=== PATIENT | male | born 1960 ===

== ENCOUNTER 2020-11-22 08:07 | Outpatient (REF) | payer OTHER, SELFPAY ==
[2020-11-22 09:53] LABS: Alanine Aminotransferase 28 U/L (0-40); Albumin Level 4.5 g/dL (3.5-5.0); Alkaline Phosphatase 77 U/L (39-117); Anion Gap 12 (12-20); Aspartate Amino Transferase 34 U/L (5-37); Bilirubin Total 0.7 mg/dL (0.0-1.0); Blood Urea Nitrogen 17 mg/dL (9-16); Calcium 9.1 mg/dL (8.4-10.2); Carbon Dioxide 25 mmol/L (22-29); Chloride 103 mmol/L (96-108); Cholesterol 115 mg/dL; Estimated Glomerular Filt Rate > 60; Glucose Fasting 105 mg/dL (60-99); HDL Cholesterol 57 mg/dL; LDL Cholesterol Calculated 51 mg/dl; Potassium 3.9 mmol/L (3.3-5.1); Sodium 136 mmol/L (135-145); Triglycerides 39 mg/dL
[2020-11-22 09:57] LABS: PSA,Total (Free>4and<10) 0.67 ng/mL (0.00-4.00)
[2020-11-23 05:32] LABS: Thyroglobulin Antibodies <1 IU/mL (< or = 1); Thyroid Peroxidase Antibodies 7 IU/mL (<9)
[2020-11-27 08:32] LABS: Vitamin D 25-OH, D2 <4 ng/mL; Vitamin D 25-OH, D3 33 ng/mL; Vitamin D 25-OH, Total 33 ng/mL (30-100)
== END 2020-11-22 08:08 | disposition home or self-care (01) ==
LOC: HO.LAB 08:07
PROVIDERS: PCP Internal Medicine; Visit Provider Internal Medicine
DX: E03.9 Hypothyroidism, unspecified (principal); E55.9 Vitamin D deficiency, unspecified; E78.5 Hyperlipidemia, unspecified; Z12.5 Encounter for screening for malignant neoplasm of prostate
CPT/HCPCS: 36415; 80053; 80061; 82306; 84153; 84439; 84443; 86376; 86800

== ENCOUNTER 2021-06-18 09:07 | Outpatient (REF) | payer OTHER, SELFPAY ==
[2021-06-18 10:29] LABS: Alanine Aminotransferase 25 U/L (0-40); Albumin Level 4.7 g/dL (3.5-5.0); Alkaline Phosphatase 82 U/L (39-117); Anion Gap 12 (12-20); Aspartate Amino Transferase 32 U/L (5-37); Bilirubin Total 0.5 mg/dL (0.0-1.0); Blood Urea Nitrogen 17 mg/dL (9-16); Calcium 9.4 mg/dL (8.4-10.2); Carbon Dioxide 23 mmol/L (22-29); Chloride 105 mmol/L (96-108); Cholesterol 127 mg/dL; Estimated Glomerular Filt Rate > 60; Glucose Fasting 118 mg/dL (60-99); HDL Cholesterol 57 mg/dL; LDL Cholesterol Calculated 64 mg/dl; Potassium 4.1 mmol/L (3.3-5.1); Sodium 136 mmol/L (135-145); Total Protein 7.3 g/dL (6.5-8.0); Triglycerides 32 mg/dL
[2021-06-18 10:36] LABS: Thyroid Stimulating Hormone 2.54 uIU/mL (0.32-4.0)
[2021-06-22 13:17] LABS: Vitamin D 25-OH, D2 <4 ng/mL; Vitamin D 25-OH, D3 39 ng/mL; Vitamin D 25-OH, Total 39 ng/mL (30-100)
== END 2021-06-18 09:08 | disposition home or self-care (01) ==
LOC: HO.LAB 09:07
PROVIDERS: Visit Provider Internal Medicine
DX: E78.5 Hyperlipidemia, unspecified (principal); E03.9 Hypothyroidism, unspecified; E55.9 Vitamin D deficiency, unspecified; I10 Essential (primary) hypertension
CPT/HCPCS: 36415; 80053; 80061; 82306; 84443

== ENCOUNTER 2021-12-09 07:47 | Outpatient (REF) | payer OTHER, SELFPAY ==
[2021-12-09 08:42] LABS: Estimated Average Glucose 108 mg/dL; Hemoglobin A1c % 5.4 %
[2021-12-09 08:50] LABS: Alanine Aminotransferase 21 U/L (0-40); Albumin Level 4.6 g/dL (3.5-5.0); Alkaline Phosphatase 72 U/L (39-117); Anion Gap 15 (12-20); Aspartate Amino Transferase 30 U/L (5-37); Bilirubin Total 0.7 mg/dL (0.0-1.0); Blood Urea Nitrogen 21 mg/dL (9-16); Carbon Dioxide 20 mmol/L (22-29); Chloride 105 mmol/L (96-108); Cholesterol 140 mg/dL; Estimated Glomerular Filt Rate > 60; Glucose Fasting 114 mg/dL (60-99); HDL Cholesterol 55 mg/dL; LDL Cholesterol Calculated 75 mg/dl; Potassium 3.9 mmol/L (3.3-5.1); Sodium 136 mmol/L (135-145); Total Protein 7.3 g/dL (6.5-8.0); Triglycerides 51 mg/dL
[2021-12-09 09:13] LABS: TSH reflex Free T4 4.14 uIU/mL (0.32-4.0); Vitamin D 25-OH Total 39.6 ng/mL (>30)
[2021-12-09 10:33] LABS: Free T4 (Free Thyroxine) 0.99 ng/dL (0.71-1.85)
== END 2021-12-09 07:48 | disposition home or self-care (01) ==
LOC: HO.LAB 07:47
PROVIDERS: PCP Internal Medicine; Visit Provider Nurse Practitioner Family
DX: I10 Essential (primary) hypertension (principal); E78.5 Hyperlipidemia, unspecified; R73.01 Impaired fasting glucose; E03.9 Hypothyroidism, unspecified
CPT/HCPCS: 36415; 80053; 80061; 82306; 83036; 84439; 84443

== ENCOUNTER 2022-04-21 06:38 | Outpatient (REF) | payer OTHER, SELFPAY | END 2022-04-21 06:39 | disposition home or self-care (01) | LOC: HO.LAB 06:38 | PROVIDERS: PCP Internal Medicine; Visit Provider Nurse Practitioner Family | DX: Z13.89 Encounter for screening for other disorder (principal) | CPT/HCPCS: 36415; 80053; 80061; 84153; 84443 ==

== ENCOUNTER 2022-09-03 08:47 | Outpatient (REF) | payer OTHER, SELFPAY ==
[2022-09-03 11:44] LABS: Alanine Aminotransferase 26 U/L (0-40); Albumin Level 4.7 g/dL (3.5-5.0); Alkaline Phosphatase 81 U/L (39-117); Anion Gap 11 (12-20); Aspartate Amino Transferase 30 U/L (5-37); Bilirubin Total 0.6 mg/dL (0.0-1.0); Blood Urea Nitrogen 18 mg/dL (9-16); Calcium 10.1 mg/dL (8.4-10.2); Carbon Dioxide 28 mmol/L (22-29); Chloride 100 mmol/L (96-108); Cholesterol 153 mg/dL; Estimated Glomerular Filt Rate > 60; Glucose Fasting 90 mg/dL (60-99); HDL Cholesterol 77 mg/dL; LDL Cholesterol Calculated 67 mg/dl; Potassium 4.4 mmol/L (3.3-5.1); Sodium 135 mmol/L (135-145); Total Protein 7.4 g/dL (6.5-8.0); Triglycerides 49 mg/dL
[2022-09-03 12:04] LABS: Thyroid Stimulating Hormone 7.97 uIU/mL (0.32-4.0)
== END 2022-09-03 08:48 | disposition home or self-care (01) ==
LOC: HO.LAB 08:47
PROVIDERS: PCP Internal Medicine; Visit Provider Internal Medicine
DX: E55.9 Vitamin D deficiency, unspecified (principal); E03.9 Hypothyroidism, unspecified; E78.5 Hyperlipidemia, unspecified; R73.01 Impaired fasting glucose
CPT/HCPCS: 36415; 80053; 80061; 82306; 84443

== ENCOUNTER 2023-01-11 08:26 | Outpatient (REF) | payer OTHER, SELFPAY ==
[2023-01-11 09:44] LABS: Alanine Aminotransferase 26 U/L (0-40); Albumin Level 4.2 g/dL (3.5-5.0); Alkaline Phosphatase 75 U/L (39-117); Anion Gap 13 (12-20); Aspartate Amino Transferase 27 U/L (5-37); Bilirubin Total 0.6 mg/dL (0.0-1.0); Blood Urea Nitrogen 16 mg/dL (9-16); Calcium 9.5 mg/dL (8.4-10.2); Carbon Dioxide 28 mmol/L (22-29); Chloride 104 mmol/L (96-108); Cholesterol 136 mg/dL; Estimated Glomerular Filt Rate > 60; Glucose Fasting 95 mg/dL (60-99); HDL Cholesterol 66 mg/dL; LDL Cholesterol Calculated 62 mg/dl; Potassium 4.7 mmol/L (3.3-5.1); Sodium 140 mmol/L (135-145); Total Protein 6.6 g/dL (6.5-8.0); Triglycerides 40 mg/dL
[2023-01-11 10:05] LABS: PSA,Total (Free>4and<10) 0.78 ng/mL (0.00-4.00); Thyroid Stimulating Hormone 5.51 uIU/mL (0.32-4.0)
== END 2023-01-11 08:27 | disposition home or self-care (01) ==
LOC: HO.LAB 08:26
PROVIDERS: PCP Internal Medicine; Visit Provider Internal Medicine
DX: Z12.5 Encounter for screening for malignant neoplasm of prostate (principal); E03.9 Hypothyroidism, unspecified; I10 Essential (primary) hypertension; E78.5 Hyperlipidemia, unspecified
CPT/HCPCS: 36415; 80053; 80061; 84153; 84443

== ENCOUNTER → 2023-03-29 08:39 | Outpatient (BNVA) | payer OTHER, SELFPAY | PROVIDERS: PCP Internal Medicine; Visit Provider Nurse Practitioner Family ==

== ENCOUNTER 2023-04-27 07:34 | Outpatient (AMB) | payer OTHER, SELFPAY ==
[2023-04-27 07:39] VITALS: BP 162/80; PULSE 81; O2SAT 97; BMI 34.1
--- NOTE | 2023-04-27 07:39 | AM.OFFVISMDC ---
Intake Vital Signs 04/27/23 07:39 04/27/23 08:13 Height 5 ft 6 in Weight 211 lb BMI 34.1 BP 162/80 H 160/80 H Blood Pressure Location Lt brachial Lt brachial Position Sitting Sitting Pulse 81 Pulse Source Pulse Oximeter Pulse Oximetry (%) 97 Oxygen Delivery Method Room Air Intake Visit Reasons: AWV Allergies No Known Allergies Allergy (Verified 04/27/23 07:51) Medication List - Last Reconciled 04/27/23 by Melissa Mcrae MD acetaminophen 1,000 mg (2 x 500 mg) PO Q6H PRN 30 days [adult diapers pull-ups As directed] ammonium lactate 12% 1 appl topical BID PRN 90 days atorvastatin 20 mg PO QPM 90 days blood pressure monitor As directed cholecalciferol (vitamin D3) 25 mcg PO DAILY 90 days Grab bar As directed [handheld shower head As directed] hydrochlorothiazide 25 mg PO DAILY 90 days levothyroxine 200 mcg PO DAILY 90 days lisinopril 30 mg PO DAILY 90 days loratadine (Allergy Relief (loratadine)) 10 mg PO DAILY 90 days melatonin 5 mg PO BEDTIME PRN 90 days [personal wipes As directed] polyethylene glycol 3350 (Miralax) 238 grams PO ONCE 1 day [raised toilet seat As directed] triamcinolone acetonide 0.5% 1 appl topical DAILY PRN walker as directed HPI HPI Comments History of Present Illness Details This is a 62-year-old male that comes for his Medicare wellness exam accompanied by niece which is the sheet pile driver operator. Blood pressure elevated and I will increase lisinopril from 30 mg to 40 mg. Blood pressure will be recheck in 3 weeks by nurse navigator. Denies any chest pain or shortness of breath. PPP handed to patient. He is legally blind and has occasional accidents. Colonoscopy is pending to be scheduled. Needs assistance in basic activities of daily living. Healthcare proxy was completed and scanned. Should use a cane. Unable to do mini-mental because he does not read or write due to being legally blind. [facility] Medical History Allergic rhinitis due to allergen Dyslipidemia Essential hypertension Hypothyroidism Insomnia Obese Surgical History History of open reduction and internal fixation (ORIF) procedure Family History Mother Diabetes mellitus Father Hypertension Mental health disorder Social History Housing: Apartment Alcohol intake: current Alcohol intake frequency: holidays/special occasions only Alcohol type: beer Patient Tobacco Use Status: Never used Tobacco e-Cigarette/Vaping Use: Never Used Second Hand Smoke Exposure: No service: No Current occupational status: disabled Cognitive needs: Yes (cane) Hearing needs: No Vision needs: No Questionnaire Medicare Wellness Checkup What is your age?: 65-69 (18-64) What gender do you identify with?: male During the past 4 weeks, how much have you been bothered by emotional problems such as feeling anxious, depressed, irritable, sad or downhearted, and blue?: quite a bit During the past 4 weeks, has your physical & emotional health limited your social activities with family, friends, neighbors, or groups?: quite a bit During the past 4 weeks, how much bodily pain have you generally had?: moderate pain During the past 4 weeks, was someone available to help you if you needed & wanted help?: yes, some During the past 4 weeks, what was the hardest physical activity you could do for at least 2 minutes?: very light Can you get to places out of walking distance without help? (For eg., can you travel alone on buses, taxis or drive your car?): No Can you go shopping for groceries or clothes without someone's help?: No Can you prepare your own meals?: No Can you do your housework without help?: No Because of any health problems, do you need the help of another person with your personal care needs such as eating, bathing, dressing or getting around the house?: Yes Can you handle your own money without help?: No During the past 4 weeks, how would you rate your health in general?: fair During the past 4 weeks how have things been going for you?: good & bad parts about equal Are you having difficulties driving your car?: not applicable, I don't use a car Do you always fasten your seat belt when you are in a car?: yes, usually During past 4 weeks, have you been bothered by the following: never: Sexual problems?, Trouble eating well?, Teeth or denture problems? and Tiredness or fatigue?, often: Falling or dizzy when standing up and always: Problems using the telephone? Have you fallen 2 or more times in the past year?: Yes Are you afraid of falling?: Yes Are you a smoker?: no During the past 4 weeks, how many drinks of wine, beer, or other alcoholic beverages did you have?: 1 drink or less per week Do you exercise for about 20 minutes 3 or more times a week?: no, I usually do not exercise this much Have you been given information to help with the following?: no: Hazards in your house that might hurt you? and no: Keeping track of your medications? How often do you have trouble taking medicines the way you have been told to take them?: I always take medicine as prescribed How confident are you that you can control & manage most of your health problems?: not very confident What is your race?: or origin or descent Mini Mental State Exam (MMSE) Orientation What is the (year) (season) (date) (day) (month)?: season and day Where are we (state) (county) (town or city) (hospital) (floor)?: state, county, town or city, hospital/clinic and floor Registration Name of 3 unrelated objects clearly and slowly, then ask patient to repeat all 3 of them. (1st repeat determines score. Make sure they can repeat all three): object 1, object 2 and object 3 Recall Ask patient to repeat the 3 items from question #3.: object 1, object 2 and object 3 Language Show patient a wristwatch & ask what it is. Repeat for pencil.: watch and pencil Ask the patient to repeat the phrase 'No ifs, ands, or buts' after you.: correct Ask the patient to 'take a piece of paper with their right hand' 'fold paper in half' 'place paper on floor': take paper in right hand, fold paper in half and place paper on floor Score Score: 19 Activity of Daily Living Bathing - sponge bath, tub bath or shower: receives help in bathing more than one body part (or not bathed) Dressing - getting clothes from closets & drawers, including inner/outer garments & fasteners.: receives help getting clothes or getting dressed, or stays undressed Toileting - going to the 'toilet room' for urine/bowel elimination & cleaning self/arranging clothes: receives help going to toilet room, cleaning self or arranging clothes Transfer: moves in & out of bed or chair with help Continence: has occasional 'accidents' Feeding: feeds self without help Total Score: 2 Information obtained from: informant (Niece) Using telephone: dependent Traveling: dependent Shopping: dependent Preparing meals: dependent Housework: dependent Taking medicine: dependent Managing money: dependent PHQ-9 Over the last 2 weeks, how often have you been bothered by any of the following problems? 1. Little interest or pleasure in doing things: several days 2. Feeling down, depressed, or hopeless: several days 3. Trouble falling or staying asleep, or sleeping too much: several days 4. Feeling tired or having little energy: not at all 5. Poor appetite or overeating: not at all 6. Feeling bad about yourself - or that you are a failure or have let yourself or your family down: not at all 7. Trouble concentrating on things, such as reading the newspaper or watching television: not at all 8. Moving or speaking so slowly that other people could have noticed. Or the opposite - being so fidgety or restless that you have been moving around a lot more than usual: not at all 9. Thoughts that you would be better off or of hurting yourself in some way: not at all Total score: 3 Depression Screening Interpretation: Negative 66262 - PHQ-9 Billing: Yes Source: Developed by Drs. Maximilian Mendieta, Cuca Harper, Roscoe Rodriguez and colleagues, with an educational linette from [employer]. Thrive Questionnaire Date Thrive assessed: 09/03/22 CASA-7 AMB Questionnaire CASA-7 Date CASA - 7 assessed: 09/03/22 Source: Developed by Drs. Maximilian Mendieta, Cuca Harper, Roscoe Rodriguez and colleagues, with an educational linette from [employer]. Review of Systems Const All systems reviewed & are unremarkable except as noted in HPI and below Eyes Reports loss of vision Card Denies chest pain at rest, Denies chest pain with activity, Denies edema, Denies irregular heart rhythm, Denies claudication, Denies dyspnea, Denies dyspnea on exertion, Denies orthopnea, Denies paroxysmal nocturnal dyspnea and Denies slow heart rate Resp Denies cough, Denies dyspnea and Denies dyspnea on exertion GI Denies abdominal pain, Denies change in bowel habits, Denies excessive flatus, Denies nausea and Denies vomiting Denies urinary hesitancy, Denies urinary incontinence and Denies urinary urgency Musc Denies abnormal gait, Denies atrophy, Denies deformity and Denies limited range of motion Skin/Breast Denies bleeding lesions, Denies changing lesions and Denies rash Neuro Denies abnormal gait, Denies lack of coordination and Reports loss of vision Physical Exam Vital Signs: Last Vital Signs Pulse 81 04/27/23 07:39 BP 162/80 H 04/27/23 07:39 Pulse Ox 97 04/27/23 07:39 Oxygen Delivery Method Room Air 04/27/23 07:39 BMI result Body Mass Index 34.1 Const Orientation/consciousness: oriented to person and oriented to place Eyes Other: legally blind Resp Auscultation: clear to auscultation bilaterally Cardio Heart sounds: S1 normal heart sound present and S2 normal heart sound present Neuro General: oriented to person and oriented to place Gait exam (Neuro): Normal gait present Romberg Test: Negative Immunizations Boostrix Tdap Performing Provider: Melissa Mcrae MD Administered by: Kelley Last CMA on 04/27/23 08:11 Dose Route Admin Location Lot Number Expiration Date [facility] Lead Simulation Modeling Engineer 0.5 mL IM Left Deltoid [id number] 07/28/25 [id number] [employer] VIS Given Date VIS Provided VIS Publication Date 04/27/23 Single Vaccine 21 Eligibility Eligibility Date Funding Source Not [facility] Eligible 04/27/23 Private Assessment & Plan Assessment & Plan (1) Encounter for Medicare annual wellness exam: Code(s): Z00.00 - Encounter for general adult medical examination without abnormal findings Plan: Repeat in a year Orders: Orders TDaP Immunization Today Z23 - Encounter for immunization Quality Reporting (2019) Depression/Bipolar (159/160/161/177) PHQ-9: Total score: 3 Coding Level of Care Code Medicare Subsequent (G0439) Diagnoses Encounter for Medicare annual wellness exam Z00.00 CPT Codes Advance Care Planning - Time spent: 1-15 minutes, on File ([id number]) Time Spent (min) 36 Advance Care Planning Advance Care Planning discussion: Completed/Scanned Date of discussion: 04/27/23 Who was present: niece, patient and me Forms completed: Health Care Proxy Time spent: 1-15 minutes, on File Actual minutes spent: 3
[2023-04-27 08:13] VITALS: BP 160/80
== END 2023-04-27 08:14 | disposition home or self-care (01) ==
PROVIDERS: PCP Internal Medicine; Visit Provider Internal Medicine
DX: Z23 Encounter for immunization (principal); Z00.00 Encounter for general adult medical examination without abnormal findings
CPT/HCPCS: 1123F; 90471; 90715; G0439

== ENCOUNTER 2023-05-10 13:56 | Emergency (ER) | payer OTHER, SELFPAY ==
[2023-05-10 14:39] VITALS: BP 180/98; PULSE 62; RESP 18; TEMP 36.8; O2SAT 99; BMI 33.6
--- NOTE | 2023-05-10 14:40 | ED.GENADULT ---
HPI - General Adult General Chief complaint: General Medical Stated complaint: HBP 4 days Time Seen by Provider: 05/10/23 20:35 Source: patient and family Mode of arrival: ambulatory Limitations: no limitations History of Present Illness HPI narrative: 62 [place] speaking male with history of obesity, HTN, HLD, insomnia who presents to the ER evaluation of elevated BP for the last 5 days - 180/140 at home associated with headaches. Niece translating for him - states the BP has been elevated since he lost his mother 5 days ago. Has been compliant with his lisinopril 40 mg and HCTZ 25 mg per day. Lisinopril increased from 20-40 mg [address] Rueda. PCP told him to come to the ER. Patient not able to sleep very well has the elevated blood pressure all life and had poor control no headache no nausea no vomiting no visual changes shortness of air no chest pain Related Data Previous Rx's Medication Instructions Recorded atorvastatin 20 mg tablet 20 mg PO QPM 90 days #90 tabs 12/12/21 melatonin 5 mg tablet 5 mg PO BEDTIME PRN sleep 90 days 12/12/21 #90 tabs polyethylene glycol 3350 17 238 g PO ONCE 1 day #238 grams 04/22/22 gram/dose oral powder (Miralax) cholecalciferol (vitamin D3) 25 25 mcg PO DAILY 90 days #90 caps 08/06/22 mcg (1,000 unit) capsule Grab bar #1 ea 09/03/22 adult diapers pull-ups #240 ea 09/03/22 handheld shower head #1 ea 09/03/22 personal wipes #300 ea 09/03/22 raised toilet seat #1 ea 09/03/22 walker #1 ea 09/03/22 ammonium lactate 12 % topical cream 1 appl topical BID PRN dry skin 90 01/11/23 days #385 grams levothyroxine 200 mcg tablet 200 mcg PO DAILY 90 days #90 tabs 01/11/23 loratadine 10 mg tablet (Allergy 10 mg PO DAILY 90 days #90 tabs 01/11/23 Relief (loratadine)) blood pressure monitor #1 ea 01/29/23 acetaminophen 500 mg tablet 1,000 mg (2 x 500 mg) PO Q6H PRN 04/11/23 fever or pain 30 days #120 tabs triamcinolone acetonide 0.5 % 1 appl topical DAILY PRN rash #15 04/11/23 topical ointment grams hydrochlorothiazide 25 mg tablet 25 mg PO DAILY 90 days #90 tabs 04/27/23 lisinopril 40 mg tablet 40 mg PO DAILY 90 days #90 tabs 04/27/23 amlodipine 5 mg tablet 5 mg PO DAILY #90 tabs 05/10/23 lorazepam 1 mg tablet (Ativan) 1 mg PO BEDTIME PRN sleep #10 tabs 05/10/23 Allergies Allergy/AdvReac Type Severity Reaction Status Date / Time No Known Allergies Allergy Verified 05/10/23 14:42 Review of Systems Review of Systems: Yes all other systems are reviewed and are negative [facility] Past Medical History Medical History Allergic rhinitis due to allergen Obese Hypothyroidism Insomnia Dyslipidemia Essential hypertension Surgical History History of open reduction and internal fixation (ORIF) procedure Family History Family History Mother Diabetes mellitus Father Hypertension Mental health disorder Social History Social History Housing: Apartment Alcohol intake: current Alcohol intake frequency: holidays/special occasions only Alcohol type: beer Patient Tobacco Use Status: Never used Tobacco e-Cigarette/Vaping Use: Never Used Second Hand Smoke Exposure: No Advance Directives: No Advance Directives Information Provided: Yes service: No Current occupational status: disabled Cognitive needs: Yes (cane) Hearing needs: No Vision needs: No Physical Exam ED Vital Signs: Vital Signs - 24 hr 05/10/23 14:39 05/10/23 19:41 Temperature 98.2 F Pulse Rate 62 63 Respiratory Rate 18 Blood Pressure 180/98 H 191/108 H Pulse Oximetry 99 97 Oxygen Delivery Method Room Air Room Air BMI result Body Mass Index 33.6 Appearance: Alert. Oriented X3. No acute distress. Look depressed Eyes: PERRLA, No Nystagmus ENT: Pharynx normal. Oral Mucosa moist Neck: Normal inspection. Neck supple. CVS: Normal heart rate and rhythm. Pulses normal. Respiratory: No respiratory distress. Equal air entry bilateral, no wheezing/rales/rhonchi Abdomen: Soft and nontender. Bowel sounds are present, no mass palpable, no CVA tenderness Skin: Skin warm and dry. Normal skin color. Normal skin turgor. Extremities: No lower extremity edema. No calf tenderness Neuro: Oriented X 3. No motor deficit. No sensory deficit.No cerebellar signs , cranial nerves II-XII intact Course Course Course Narrative: RME - 62 [place] speaking male with history of obesity, HTN, HLD, insomnia who presents to the ER evaluation of elevated BP for the last 5 days - 180/140 at home associated with headaches. Niece translating for him - states the BP has been elevated since he lost his mother 5 days ago. Has been compliant with his lisinopril 40 mg and HCTZ 25 mg per day. One of his meds was increased [address] Rueda. PCP told him to come to the ER. BP 180/98 in triage. no headache, chest pain or vision changes Plan: basic labs, EKG Medications Administered Discontinued Medications Generic Name Dose Route Start Last Admin Trade Name Yfn PRN Reason Stop Dose Admin Amlodipine Besylate 5 mg 05/10/23 20:58 05/10/23 21:11 Amlodipine Besylate 5 Mg Tablet PO 05/10/23 20:59 5 mg ONCE ONE Administration Protocol Lorazepam 1 mg 05/10/23 20:59 05/10/23 21:11 Lorazepam 1 Mg Tablet PO 05/10/23 21:00 1 mg ONCE ONE Administration Medical Decision Making Medical Decision Making [facility] Narrative: Patient with elevated hypertension already on lisinopril and hydrochlorothiazide will add 5 mg of amlodipine for better blood pressure control also give Ativan for grief reaction Differential Diagnosis Differential Diagnoses: The differential diagnosis associated with the presentation includes Accelerated hypertension/hypertension urgency/grief reaction Lab Data [facility] Lab Attestation statement: I reviewed the patient's lab results. 05/10/23 15:11 05/10/23 15:11 Labs: Lab Results 05/10/23 05/10/23 Range/Units 15:11 19:52 WBC 7.4 (4.8-10.8) X10*3/uL RBC 5.04 (4.60-5.80) X10*6/uL Hgb 15.3 (14.0-18.0) g/dl Hct 45.0 (42.0-52.0) % MCV 89.3 (80.0-98.0) fL MCH 30.4 (27.0-33.0) pg MCHC 34.0 (31.0-36.0) g/dl RDW 13.3 (11.0-16.0) % Plt Count 212 (160-400) X10*3/uL MPV 9.9 (9.4-12.4) fL Immature Gran % (Auto) 0.3 (0.0-0.4) % Neut % (Auto) 70.5 (45-73) % Lymph % (Auto) 21.7 (20-40) % Hart % (Auto) 6.6 (2-11) % Eos % (Auto) 0.5 (0-4) % Baso % (Auto) 0.4 (0-2) % Lymph # (Auto) 1.6 (1.2-4.9) X10*3/uL Hart # (Auto) 0.5 (0.1-1.2) X10*3/uL Eos # (Auto) 0.0 (0.0-0.4) X10*3/uL Baso # (Auto) 0.0 (0.0-0.2) X10*3/uL Abs Immat Gran (auto) 0.02 (0.00-0.03) X10*3/uL Absolute Neuts (auto) 5.2 (2.0-8.3) x10*3/uL Absolute Nucleated RBC 0.000 (0.0-0.012) X10*3/uL Nucleated RBC % (auto) 0.0 (0.0-0.2) /100WBC Sodium 135 (135-145) mmol/L Potassium 4.0 (3.3-5.1) mmol/L Chloride 101 (96-108) mmol/L Carbon Dioxide 28 (22-29) mmol/L Anion Gap 10 L (12-20) BUN 14 (9-16) mg/dL Creatinine 0.95 (0.5-1.4) mg/dL Estim Creat Clear Calc 86.6 Estimated GFR > 60 Random Glucose 92 (60-115) mg/dL Calcium 10.3 H D (8.4-10.2) mg/dL Magnesium 2.0 (1.6-2.6) mg/dL Total Bilirubin 0.6 (0.0-1.0) mg/dL Direct Bilirubin 0.2 (0.0-0.5) mg/dL AST 63 H (5-37) U/L ALT 40 (0-40) U/L Alkaline Phosphatase 72 (39-117) U/L Troponin I High Sens < 2.7 (<3.5-35.0) ng/L Total Protein 7.4 (6.5-8.0) g/dL Albumin 4.6 (3.5-5.0) g/dL Urine Color Yellow Urine Appearance Clear Urine pH 7.0 (5.0-9.0) Ur Specific [place] 1.020 (1.005-1.025) Urine Protein Negative (Neg-Trace) mg/dL Urine Glucose (UA) Negative (Negative) mg/dL Urine Ketones Negative (Negative) mg/dL Urine Blood Negative (Negative) Urine Nitrite Negative (Negative) Ur Leukocyte Esterase Negative (Negative) Discharge Plan Discharge Clinical Impression: Essential hypertension, Grief reaction Patient Disposition: Home, Self-Care Instructions: Grief and Loss (ED), Chronic Hypertension (ED) Additional Instructions: Continue taking your lisinopril 40 mg daily Add amlodipine 5 mg daily for better blood pressure control Ativan 1 mg at bedtime for better. Sleep Check blood pressure at least 2 times a day before taking medications and before going to bed Prescriptions: New amlodipine 5 mg tablet 5 mg PO DAILY Qty: 90 3RF lorazepam [Ativan] 1 mg tablet 1 mg PO BEDTIME PRN (Reason: sleep) Qty: 10 0RF No Action polyethylene glycol 3350 [Miralax] 17 gram/dose powder 238 g PO ONCE 1 Days Qty: 238 0RF Rx Instructions: take orally as directed prior to colonoscopy cholecalciferol (vitamin D3) 25 mcg (1,000 unit) capsule 25 mcg PO DAILY 90 Days Qty: 90 3RF levothyroxine 200 mcg tablet 200 mcg PO DAILY 90 Days Qty: 90 1RF (DME) blood pressure monitor Kit See Rx Instructions .Route Qty: 1 0RF Rx Instructions: As directed acetaminophen 500 mg tablet 1,000 mg PO Q6H PRN (Reason: fever or pain) 30 Days Qty: 120 1RF triamcinolone acetonide 0.5 % ointment 1 appl topical DAILY PRN (Reason: rash) Qty: 15 0RF melatonin 5 mg tablet 5 mg PO BEDTIME PRN (Reason: sleep) 90 Days Qty: 90 1RF atorvastatin 20 mg tablet 20 mg PO QPM 90 Days Qty: 90 3RF hydrochlorothiazide 25 mg tablet 25 mg PO DAILY 90 Days Qty: 90 1RF lisinopril 40 mg tablet 40 mg PO DAILY 90 Days Qty: 90 1RF ammonium lactate 12 % cream 1 appl topical BID PRN (Reason: dry skin) 90 Days Qty: 385 1RF loratadine [Allergy Relief (loratadine)] 10 mg tablet 10 mg PO DAILY 90 Days Qty: 90 1RF (DME) adult diapers pull-ups large See Rx Instructions .Route .MEDSUPPLY Qty: 240 11RF Rx Instructions: As directed (DME) personal wipes See Rx Instructions .Route .MEDSUPPLY Qty: 300 11RF Rx Instructions: As directed (DME) walker Misc See Rx Instructions .Route Qty: 1 0RF Rx Instructions: as directed (DME) Grab bar Misc See Rx Instructions .Route Qty: 1 0RF Rx Instructions: As directed (DME) handheld shower head See Rx Instructions .Route .MEDSUPPLY Qty: 1 0RF Rx Instructions: As directed (DME) raised toilet seat See Rx Instructions .Route .MEDSUPPLY Qty: 1 0RF Rx Instructions: As directed Interventions: ED Discharge Assessment Last Done: 05/10/23 21:43 Discharge Date/Time: 05/10/23 21:44 Print Language: [place] African
--- NOTE | 2023-05-10 14:42 | ECG_ITS ---
Test Reason : high blood pressure Blood Pressure : / mmHG Vent. Rate : 053 BPM Atrial Rate : 053 BPM P-R Int : 174 ms QRS Dur : 102 ms QT Int : 420 ms P-R-T Axes : 023 -33 060 degrees QTc Int : 394 ms Sinus bradycardia Left axis deviation Minimal voltage criteria for LVH, may be normal variant ( [place] product ) Nonspecific T wave abnormality Abnormal ECG No previous ECGs available Referred By: Elmira Bucio Electronically Signed By:ALMAS SALDAÑA
[2023-05-10 15:17] LABS: MANUAL DIFF FLAG NO
[2023-05-10 15:31] LABS: Basophils Percent Auto 0.4 % (0-2); Eosinophils Percent Auto 0.5 % (0-4); Hemoglobin 15.3 g/dl (14.0-18.0); Imm Gran Abs Auto 0.02 X10*3/uL (0.00-0.03); Imm Gran Pct Auto 0.3 % (0.0-0.4); Lymphocytes Absolute Auto 1.6 X10*3/uL (1.2-4.9); Lymphocytes Percent Auto 21.7 % (20-40); Mean Corpuscular Hemoglobin 30.4 pg (27.0-33.0); Mean Corpuscular Volume 89.3 fL (80.0-98.0); Mean Platelet Volume 9.9 fL (9.4-12.4); Monocytes Absolute Auto 0.5 X10*3/uL (0.1-1.2); Monocytes Percent Auto 6.6 % (2-11); Neutrophils Absolute Auto 5.2 x10*3/uL (2.0-8.3); Neutrophils Percent Auto 70.5 % (45-73); Platelet Count 212 X10*3/uL (160-400); Red Blood Count 5.04 X10*6/uL (4.60-5.80); Red Cell Distribution Width 13.3 % (11.0-16.0); White Blood Count 7.4 X10*3/uL (4.8-10.8)
[2023-05-10 15:34] LABS: Alanine Aminotransferase 40 U/L (0-40); Albumin Level 4.6 g/dL (3.5-5.0); Alkaline Phosphatase 72 U/L (39-117); Anion Gap 10 (12-20); Aspartate Amino Transferase 63 U/L (5-37); Bilirubin Direct 0.2 mg/dL (0.0-0.5); Bilirubin Total 0.6 mg/dL (0.0-1.0); Blood Urea Nitrogen 14 mg/dL (9-16); Calcium 10.3 mg/dL (8.4-10.2); Carbon Dioxide 28 mmol/L (22-29); Chloride 101 mmol/L (96-108); Creatinine Clr Calc Pharmacy 86.6; Estimated Glomerular Filt Rate > 60; Glucose Random 92 mg/dL (60-115); Sodium 135 mmol/L (135-145); Total Protein 7.4 g/dL (6.5-8.0)
[2023-05-10 15:43] LABS: Troponin-I High Sensitivity < 2.7 ng/L (<3.5-35.0)
[2023-05-10 19:41] VITALS: BP 191/108; PULSE 63; O2SAT 97
[2023-05-10 20:00] LABS: Appearance Urine Clear; Color Urine Yellow; Glucose Urine UA Negative (Negative); Leukocyte Esterase Urine Negative (Negative); Nitrite Urine Negative (Negative); Urine Blood Negative (Negative); Urine Ketones Negative (Negative); Urine Protein Negative (Neg-Trace)
[2023-05-10] MEDS: amLODIPine Besylate 5 MG TABLET PO (21:11)
[2023-05-10] MEDS: LORazepam 1 MG TABLET PO (21:11)
--- NOTE | 2023-05-10 21:12 | PC.NURSE ---
Medicated per Oct, Notified ABBI Whatley.
== END 2023-05-10 21:44 | disposition home or self-care (01) ==
PROVIDERS: Physician Assistant; Emergency Provider Internal Medicine; PCP Internal Medicine
DX: F43.21 Adjustment disorder with depressed mood (principal); I10 Essential (primary) hypertension; R00.1 Bradycardia, unspecified; R51.9 Headache, unspecified; Z79.899 Other long term (current) drug therapy
CPT/HCPCS: 36415; 80048; 80076; 81003; 83735; 84484; 85025; 93005; 99283; 99284

== ENCOUNTER 2023-07-16 20:57 | Emergency (ER) | payer OTHER, SELFPAY ==
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
[2023-07-16 21:01] VITALS: BP 144/89; PULSE 82; RESP 16; TEMP 37; O2SAT 98; BMI 32.7
[2023-07-16 21:10] VITALS: BP 144/78; PULSE 103; RESP 18; TEMP 36.3; O2SAT 99
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
[2023-07-16] MEDS: Lidocaine HCl 2 % 20 ML VIAL 10 ML SUBCUT (23:04)
[2023-07-16] MEDS: Ibuprofen 600 MG TABLET PO (23:04)
--- NOTE | 2023-07-16 23:07 | PC.NURSE ---
Patient is alert and oriented x4, respirations even and unlabored, skin pwd, reporting 9/10 pain in farooq where patient has 4 inch, 1 cm deep laceration with adipose tissue visible. Patient also reports 3/10 right rib pain. Patient denies head, neck or back pain. Offers no complaints to this RN. Pt medicated per MAR
[2023-07-16] MEDS: cephALEXin 500 MG CAPSULE PO (23:59)
[2023-07-16] MEDS: Bacitracin Oint 0.9 GM PACKET 3 APPL TOPICAL (23:59)
--- NOTE | 2023-07-17 00:02 | PC.NURSE ---
Took over care for RN Chante, Provider into assess pt and suture laceration, Laceration clean and dressed.
--- NOTE | 2023-07-17 00:07 | PC.NURSE ---
Education on suture care and follow up care.
[2023-07-17 00:32] VITALS: BP 165/97; PULSE 77; RESP 18; TEMP 37.2; O2SAT 99
--- NOTE | 2023-07-17 00:48 | PC.NURSE ---
Reviewed discharge instruction with pt, pt verbalized understanding, education on crutches. pt discharge home with niece, no sign of distress at discharge.
== END 2023-07-17 00:50 | disposition home or self-care (01) ==
PROVIDERS: Emergency Provider Internal Medicine
DX: S81.811A Laceration without foreign body, right lower leg, initial encounter (principal); S82.401A Unspecified fracture of shaft of right fibula, initial encounter for closed fracture; M79.661 Pain in right lower leg; V03.10XA Pedestrian on foot injured in collision with car, pick-up truck or van in traffic accident, initial encounter; Y93.9 Activity, unspecified; Y92.410 Unspecified street and highway as the place of occurrence of the external cause; Y99.9 Unspecified external cause status; Z79.899 Other long term (current) drug therapy
CPT/HCPCS: 12034; 71250; 73590; 99284

== ENCOUNTER 2023-07-27 17:27 | Emergency (ER) | payer OTHER, SELFPAY ==
[2023-07-27 17:50] VITALS: BP 143/73; PULSE 68; RESP 16; TEMP 37; O2SAT 99; BMI 33.6
--- NOTE | 2023-07-27 17:56 | ED_ITS ---
HPI - General Adult General Chief complaint: General Medical Stated complaint: NEEDS STITCHES REMOVED Related Data Previous Rx's Medication Instructions Recorded atorvastatin 20 mg tablet 20 mg PO QPM 90 days #90 tabs 12/12/21 melatonin 5 mg tablet 5 mg PO BEDTIME PRN sleep 90 days 12/12/21 #90 tabs polyethylene glycol 3350 17 238 g PO ONCE 1 day #238 grams 04/22/22 gram/dose oral powder (Miralax) cholecalciferol (vitamin D3) 25 25 mcg PO DAILY 90 days #90 caps 08/06/22 mcg (1,000 unit) capsule Grab bar #1 ea 09/03/22 handheld shower head #1 ea 09/03/22 raised toilet seat #1 ea 09/03/22 walker #1 ea 09/03/22 ammonium lactate 12 % topical cream 1 appl topical BID PRN dry skin 90 01/11/23 days #385 grams levothyroxine 200 mcg tablet 200 mcg PO DAILY 90 days #90 tabs 01/11/23 blood pressure monitor #1 ea 01/29/23 hydrochlorothiazide 25 mg tablet 25 mg PO DAILY 90 days #90 tabs 04/27/23 lisinopril 40 mg tablet 40 mg PO DAILY 90 days #90 tabs 04/27/23 lorazepam 1 mg tablet (Ativan) 1 mg PO BEDTIME PRN sleep #10 tabs 05/10/23 amlodipine 5 mg tablet 5 mg PO DAILY #90 tabs 05/14/23 adult diapers pull-ups #240 ea 06/10/23 disposable gloves #200 ea 06/10/23 personal wipes #300 ea 06/10/23 underpads (Bed Underpads) #100 ea 06/10/23 lorazepam 1 mg tablet 1 mg PO BEDTIME PRN anxiety 30 06/16/23 days #30 tabs acetaminophen 500 mg tablet 1,000 mg (2 x 500 mg) PO Q6H PRN 06/19/23 fever or pain 30 days #120 tabs triamcinolone acetonide 0.5 % 1 appl topical DAILY PRN rash #15 06/19/23 topical ointment grams loratadine 10 mg tablet (Allergy 10 mg PO DAILY 90 days #90 tabs 07/09/23 Relief (loratadine)) cephalexin 500 mg capsule 500 mg PO QID 10 days #40 caps 07/17/23 ibuprofen 600 mg tablet 600 mg PO Q6H PRN fever or pain 07/17/23 #30 tabs Allergies Allergy/AdvReac Type Severity Reaction Status Date / Time No Known Allergies Allergy Unverified 06/16/23 14:20 [No Known Allergies*] [facility] Past Medical History Medical History Allergic rhinitis due to allergen Obese Hypothyroidism Insomnia Dyslipidemia Essential hypertension Surgical History History of open reduction and internal fixation (ORIF) procedure Family History Family History Mother Diabetes mellitus Father Hypertension Mental health disorder Social History Social History Housing: Apartment Alcohol intake: current Alcohol intake frequency: holidays/special occasions only Alcohol type: beer Patient Tobacco Use Status: Never used Tobacco e-Cigarette/Vaping Use: Never Used Second Hand Smoke Exposure: No service: No Current occupational status: disabled Cognitive needs: Yes (cane) Hearing needs: No Vision needs: No Physical Exam ED Vital Signs: Vital Signs - 24 hr 07/27/23 17:50 Temperature 98.6 F Pulse Rate 68 Respiratory Rate 16 Blood Pressure 143/73 H Pulse Oximetry 99 Oxygen Delivery Method Room Air BMI result Body Mass Index 33.6 Course Course Course Narrative: This is a rapid medical exam: Additional HPI, ROS, PE not included below will be deferred to primary provider. Patient is a 62-year-old male presenting to the ED for suture removal to right lower leg. Sutures significantly embedded in wound. Will require significant time for removal. Discussed with patient and family that sutures unable to be removed in triage, family states they will return in the next few days. Discharge Plan Discharge Clinical Impression: Visit for wound check Patient Disposition: Left W/O Completing Treatment Prescriptions: No Action polyethylene glycol 3350 [Miralax] 17 gram/dose powder 238 g PO ONCE 1 Days Qty: 238 0RF Rx Instructions: take orally as directed prior to colonoscopy cholecalciferol (vitamin D3) 25 mcg (1,000 unit) capsule 25 mcg PO DAILY 90 Days Qty: 90 3RF levothyroxine 200 mcg tablet 200 mcg PO DAILY 90 Days Qty: 90 1RF (DME) blood pressure monitor Kit See Rx Instructions .Route Qty: 1 0RF Rx Instructions: As directed amlodipine 5 mg tablet 5 mg PO DAILY Qty: 90 3RF (DME) personal wipes See Rx Instructions .Route .MEDSUPPLY Qty: 300 11RF Rx Instructions: As directed (DME) underpads [Bed Underpads] Pad See Rx Instructions .Route Qty: 100 6RF Rx Instructions: Use 2 to 4 bed underpads once a day (DME) disposable gloves Misc See Rx Instructions .Route Qty: 200 6RF Rx Instructions: as needed (DME) adult diapers pull-ups large See Rx Instructions .Route .MEDSUPPLY Qty: 240 11RF Rx Instructions: As directed lorazepam 1 mg tablet 1 mg PO BEDTIME PRN (Reason: anxiety) 30 Days Qty: 30 0RF triamcinolone acetonide 0.5 % ointment 1 appl topical DAILY PRN (Reason: rash) Qty: 15 0RF acetaminophen 500 mg tablet 1,000 mg PO Q6H PRN (Reason: fever or pain) 30 Days Qty: 120 1RF loratadine [Allergy Relief (loratadine)] 10 mg tablet 10 mg PO DAILY 90 Days Qty: 90 3RF cephalexin 500 mg capsule 500 mg PO QID 10 Days Qty: 40 0RF ibuprofen 600 mg tablet 600 mg PO Q6H PRN (Reason: fever or pain) Qty: 30 0RF lorazepam [Ativan] 1 mg tablet 1 mg PO BEDTIME PRN (Reason: sleep) Qty: 10 0RF melatonin 5 mg tablet 5 mg PO BEDTIME PRN (Reason: sleep) 90 Days Qty: 90 1RF atorvastatin 20 mg tablet 20 mg PO QPM 90 Days Qty: 90 3RF hydrochlorothiazide 25 mg tablet 25 mg PO DAILY 90 Days Qty: 90 1RF lisinopril 40 mg tablet 40 mg PO DAILY 90 Days Qty: 90 1RF ammonium lactate 12 % cream 1 appl topical BID PRN (Reason: dry skin) 90 Days Qty: 385 1RF (DME) walker Misc See Rx Instructions .Route Qty: 1 0RF Rx Instructions: as directed (DME) Grab bar Misc See Rx Instructions .Route Qty: 1 0RF Rx Instructions: As directed (DME) handheld shower head See Rx Instructions .Route .MEDSUPPLY Qty: 1 0RF Rx Instructions: As directed (DME) raised toilet seat See Rx Instructions .Route .MEDSUPPLY Qty: 1 0RF Rx Instructions: As directed
== END 2023-07-27 18:40 | disposition left against medical advice (07) ==
PROVIDERS: Emergency Provider Emergency Medicine; PCP Internal Medicine
DX: Z53.21 Procedure and treatment not carried out due to patient leaving prior to being seen by health care provider (principal); Z48.02 Encounter for removal of sutures
CPT/HCPCS: 99281

== ENCOUNTER 2023-07-30 17:55 | Emergency (ER) | payer OTHER, SELFPAY ==
[2023-07-30 18:28] VITALS: BP 160/88; PULSE 52; RESP 16; TEMP 36.7; O2SAT 100; BMI 33.6
--- NOTE | 2023-07-30 18:29 | ED_ITS ---
HPI - General Adult General Chief complaint: General Medical Stated complaint: stitches removal Time Seen by Provider: 07/30/23 18:29 Source: patient, family and RN notes reviewed Mode of arrival: ambulatory Limitations: no limitations History of Present Illness HPI narrative: 62-year-old male presents for suture removal to his right lower leg. Patient was seen here on 07/16/2023 He had an open fracture of the right fibula. He had 15 subcutaneous sutures and 10 surface/cutaneous sutures placed He is here to have them removed He denies pain, fevers, chills Related Data Previous Rx's Medication Instructions Recorded atorvastatin 20 mg tablet 20 mg PO QPM 90 days #90 tabs 12/12/21 melatonin 5 mg tablet 5 mg PO BEDTIME PRN sleep 90 days 12/12/21 #90 tabs polyethylene glycol 3350 17 238 g PO ONCE 1 day #238 grams 04/22/22 gram/dose oral powder (Miralax) cholecalciferol (vitamin D3) 25 25 mcg PO DAILY 90 days #90 caps 08/06/22 mcg (1,000 unit) capsule Grab bar #1 ea 09/03/22 handheld shower head #1 ea 09/03/22 raised toilet seat #1 ea 09/03/22 walker #1 ea 09/03/22 ammonium lactate 12 % topical cream 1 appl topical BID PRN dry skin 90 01/11/23 days #385 grams levothyroxine 200 mcg tablet 200 mcg PO DAILY 90 days #90 tabs 01/11/23 blood pressure monitor #1 ea 01/29/23 hydrochlorothiazide 25 mg tablet 25 mg PO DAILY 90 days #90 tabs 04/27/23 lisinopril 40 mg tablet 40 mg PO DAILY 90 days #90 tabs 04/27/23 lorazepam 1 mg tablet (Ativan) 1 mg PO BEDTIME PRN sleep #10 tabs 05/10/23 amlodipine 5 mg tablet 5 mg PO DAILY #90 tabs 05/14/23 adult diapers pull-ups #240 ea 06/10/23 disposable gloves #200 ea 06/10/23 personal wipes #300 ea 06/10/23 underpads (Bed Underpads) #100 ea 06/10/23 lorazepam 1 mg tablet 1 mg PO BEDTIME PRN anxiety 30 06/16/23 days #30 tabs acetaminophen 500 mg tablet 1,000 mg (2 x 500 mg) PO Q6H PRN 06/19/23 fever or pain 30 days #120 tabs triamcinolone acetonide 0.5 % 1 appl topical DAILY PRN rash #15 06/19/23 topical ointment grams loratadine 10 mg tablet (Allergy 10 mg PO DAILY 90 days #90 tabs 07/09/23 Relief (loratadine)) cephalexin 500 mg capsule 500 mg PO QID 10 days #40 caps 07/17/23 ibuprofen 600 mg tablet 600 mg PO Q6H PRN fever or pain 07/17/23 #30 tabs Allergies Allergy/AdvReac Type Severity Reaction Status Date / Time No Known Allergies Allergy Verified 07/30/23 18:24 [No Known Allergies*] [facility] Past Medical History Medical History Allergic rhinitis due to allergen Obese Hypothyroidism Insomnia Dyslipidemia Essential hypertension Surgical History History of open reduction and internal fixation (ORIF) procedure Family History Family History Mother Diabetes mellitus Father Hypertension Mental health disorder Social History Social History Housing: Apartment Alcohol intake: current Alcohol intake frequency: holidays/special occasions only Alcohol type: beer Patient Tobacco Use Status: Never used Tobacco e-Cigarette/Vaping Use: Never Used Second Hand Smoke Exposure: No Advance Directives: Yes Advance Directives on File: Yes Advance Directives Date on File: 10/23/22 service: No Current occupational status: disabled Cognitive needs: Yes (cane) Hearing needs: No Vision needs: No Physical Exam ED Vital Signs: Vital Signs - 24 hr 07/30/23 18:28 Temperature 98.1 F Pulse Rate 52 Respiratory Rate 16 Blood Pressure 160/88 H Pulse Oximetry 100 Oxygen Delivery Method Room Air BMI result Body Mass Index 33.6 Course Reevaluation(s) Reevaluation #1: I was able to remove 12 sutures with the help of PA student Heather Alexander There was no wound dehiscence Time: 18:42 Medical Decision Making Medical Decision Making MDM Narrative: Patient has 10 sutures to the surfaces skin that can be removed today. The wound appears well healed, there is still significant scab to the area. Differential Diagnosis Differential Diagnoses: The differential diagnosis associated with the presentation includes Wound check Laceration Cellulitis Suture removed Discharge Plan Discharge Clinical Impression: Encounter for removal of sutures Patient Disposition: Home, Self-Care Instructions: Stitches Removal (ED) Additional Instructions: Your sutures were removed today. To not scratch or pick at the scab, it should fall off on its own Prescriptions: No Action polyethylene glycol 3350 [Miralax] 17 gram/dose powder 238 g PO ONCE 1 Days Qty: 238 0RF Rx Instructions: take orally as directed prior to colonoscopy cholecalciferol (vitamin D3) 25 mcg (1,000 unit) capsule 25 mcg PO DAILY 90 Days Qty: 90 3RF levothyroxine 200 mcg tablet 200 mcg PO DAILY 90 Days Qty: 90 1RF (DME) blood pressure monitor Kit See Rx Instructions .Route Qty: 1 0RF Rx Instructions: As directed amlodipine 5 mg tablet 5 mg PO DAILY Qty: 90 3RF (DME) personal wipes See Rx Instructions .Route .MEDSUPPLY Qty: 300 11RF Rx Instructions: As directed (DME) underpads [Bed Underpads] Pad See Rx Instructions .Route Qty: 100 6RF Rx Instructions: Use 2 to 4 bed underpads once a day (DME) disposable gloves Misc See Rx Instructions .Route Qty: 200 6RF Rx Instructions: as needed (DME) adult diapers pull-ups large See Rx Instructions .Route .MEDSUPPLY Qty: 240 11RF Rx Instructions: As directed lorazepam 1 mg tablet 1 mg PO BEDTIME PRN (Reason: anxiety) 30 Days Qty: 30 0RF triamcinolone acetonide 0.5 % ointment 1 appl topical DAILY PRN (Reason: rash) Qty: 15 0RF acetaminophen 500 mg tablet 1,000 mg PO Q6H PRN (Reason: fever or pain) 30 Days Qty: 120 1RF loratadine [Allergy Relief (loratadine)] 10 mg tablet 10 mg PO DAILY 90 Days Qty: 90 3RF cephalexin 500 mg capsule 500 mg PO QID 10 Days Qty: 40 0RF ibuprofen 600 mg tablet 600 mg PO Q6H PRN (Reason: fever or pain) Qty: 30 0RF lorazepam [Ativan] 1 mg tablet 1 mg PO BEDTIME PRN (Reason: sleep) Qty: 10 0RF melatonin 5 mg tablet 5 mg PO BEDTIME PRN (Reason: sleep) 90 Days Qty: 90 1RF atorvastatin 20 mg tablet 20 mg PO QPM 90 Days Qty: 90 3RF hydrochlorothiazide 25 mg tablet 25 mg PO DAILY 90 Days Qty: 90 1RF lisinopril 40 mg tablet 40 mg PO DAILY 90 Days Qty: 90 1RF ammonium lactate 12 % cream 1 appl topical BID PRN (Reason: dry skin) 90 Days Qty: 385 1RF (DME) walker Misc See Rx Instructions .Route Qty: 1 0RF Rx Instructions: as directed (DME) Grab bar Misc See Rx Instructions .Route Qty: 1 0RF Rx Instructions: As directed (DME) handheld shower head See Rx Instructions .Route .MEDSUPPLY Qty: 1 0RF Rx Instructions: As directed (DME) raised toilet seat See Rx Instructions .Route .MEDSUPPLY Qty: 1 0RF Rx Instructions: As directed
== END 2023-07-30 18:43 | disposition home or self-care (01) ==
LOC: HO.ED 18:37
PROVIDERS: Emergency Provider Emergency Medicine; PCP Internal Medicine
DX: Z48.02 Encounter for removal of sutures (principal); Z79.899 Other long term (current) drug therapy
CPT/HCPCS: 99282

== ENCOUNTER 2023-09-01 16:45 | Outpatient (AMB) | payer OTHER, SELFPAY ==
[2023-09-01 16:49] VITALS: BP 142/88; PULSE 70; RESP 16; O2SAT 99; BMI 32.6
--- NOTE | 2023-09-01 16:49 | MHC.PC.OV ---
Vital Signs 09/01/23 16:49 Height 5 ft 6 in Weight 202 lb 2 oz BMI 32.6 BP 142/88 H Blood Pressure Location Lt brachial Position Sitting Respiration 16 Pulse 70 Pulse Source Pulse Oximeter Pulse Oximetry (%) 99 Oxygen Delivery Method Room Air Intake Visit Reasons: 4M follow up Balancer Required: No Accompanied by: Niece Allergies No Known Allergies [No Known Allergies*] Allergy (Verified 09/01/23 17:05) Medication List - Last Reconciled 09/01/23 by Melissa Mcrae MD acetaminophen 1,000 mg (2 x 500 mg) PO Q6H PRN 30 days [adult diapers pull-ups As directed] amlodipine 5 mg PO DAILY ammonium lactate 12% 1 appl topical BID PRN 90 days atorvastatin 20 mg PO QPM 90 days blood pressure monitor As directed cholecalciferol (vitamin D3) 25 mcg PO DAILY 90 days disposable gloves as needed Grab bar As directed [handheld shower head As directed] hydrochlorothiazide 25 mg PO DAILY 90 days ibuprofen 600 mg PO Q6H PRN levothyroxine 200 mcg PO DAILY 90 days lisinopril 40 mg PO DAILY 90 days loratadine (Allergy Relief (loratadine)) 10 mg PO DAILY 90 days lorazepam (Ativan) 1 mg PO BEDTIME PRN lorazepam 1 mg PO BEDTIME PRN 30 days melatonin 5 mg PO BEDTIME PRN 90 days [personal wipes As directed] polyethylene glycol 3350 (Miralax) 238 grams PO ONCE 1 day [raised toilet seat As directed] triamcinolone acetonide 0.5% 1 appl topical DAILY PRN underpads (Bed Underpads) Use 2 to 4 bed underpads once a day walker as directed Tobacco use date assessed: 09/01/23 Dental Screening Dental Screen Date: 09/01/23 Did you have a dental visit in the last 12 months?: Yes Did you have a dental problem in the last 6 months where you did not have access to dental care?: No Was dental information given to patient?: Patient has dentist HPI HPI Comments History of Present Illness Details This is a 62-year-old male with hypertension, hypothyroidism, dyslipidemia and insomnia that comes today accompanied by niece for follow-up on his conditions. Blood pressure borderline normal to elevated and I will increase amlodipine from 5 mg to 10 mg. He did took use medications today. Last TSH was elevated but he was out of levothyroxine. TSH will be repeated. Cholesterol stable with statins. Reports no side effects. Has insomnia and melatonin has not worked for him. I will start him on trazodone. Also has some mild transaminitis that will be repeated. Denies jaundice. [facility] Medical History (Updated 09/01/23 @ 17:14 by Melissa Mcrae MD) Allergic rhinitis due to allergen Obese Hypothyroidism Insomnia Dyslipidemia Essential hypertension Surgical History History of open reduction and internal fixation (ORIF) procedure Family History Mother Diabetes mellitus Father Hypertension Mental health disorder Social History Housing: Apartment Alcohol intake: current Alcohol intake frequency: holidays/special occasions only Alcohol type: beer Patient Tobacco Use Status: Never used Tobacco e-Cigarette/Vaping Use: Never Used Second Hand Smoke Exposure: No Advance Directives Date on File: 10/23/22 service: No Current occupational status: disabled Cognitive needs: Yes (cane) Hearing needs: No Vision needs: No Questionnaire PHQ-9 Over the last 2 weeks, how often have you been bothered by any of the following problems? 1. Little interest or pleasure in doing things: not at all 2. Feeling down, depressed, or hopeless: not at all 3. Trouble falling or staying asleep, or sleeping too much: not at all 4. Feeling tired or having little energy: not at all 5. Poor appetite or overeating: not at all 6. Feeling bad about yourself - or that you are a failure or have let yourself or your family down: not at all 7. Trouble concentrating on things, such as reading the newspaper or watching television: not at all 8. Moving or speaking so slowly that other people could have noticed. Or the opposite - being so fidgety or restless that you have been moving around a lot more than usual: not at all 9. Thoughts that you would be better off or of hurting yourself in some way: not at all Total score: 0 Depression Screening Interpretation: Negative Depression Screening Done: Yes 35572 - PHQ-9 Billing: Yes Source: Developed by Drs. Maximilian Mendieta, Cuca Harper, Roscoe Rodriguez and colleagues, with an educational linette from [employer]. Thrive Questionnaire Date Thrive assessed: 09/01/23 I am a: Patient What is your living situation today?: I have a steady place to live Within the past 12 months, did the food you bought not last and you didn't have the money to get more?: Never true Within the past 12 months, did you worry whether your food would run out before you got money to buy more?: Never true Do you have trouble paying for medicines?: No Do you have trouble getting transportation to medical appointments?: No Do you have trouble paying your heating and electricity bill?: No Do you have trouble taking care of your child, family member or friend?: No Do you have trouble with day-to-day activities such as bathing, preparing meals, shopping, managing finances, etc.?: No Are you currently unemployed and looking for a job?: No Are you interested in more education?: No Please select the resources that you would like help with: None Currently or been in a relationship where the following occur: no concerns reported AUDIT C Alcohol Use Questionnaire (AUDIT-C) 1. How often do you have a drink containing alcohol?: Monthly or less 2. How many drinks containing alcohol do you have on a typical day when you are drinking?: 3 or 4 3. How often do you have six or more drinks on one occasion?: Never Total Score: 2 Score Reviewed/Action Taken: Yes CASA-7 AMB Questionnaire CASA-7 Date CASA - 7 assessed: 09/01/23 Feeling nervous, anxious, or on edge: 0 = Not at all Not being able to stop or control worryin = Not at all Worrying too much about different things: 0 = Not at all Trouble relaxin = Not at all Being so restless that it is hard to sit still: 0 = Not at all Becoming easily annoyed or irritable: 0 = Not at all Feeling afraid as if something awful might happen: 0 = Not at all Total CASA-7 score (0-4 normal; 5-9 mild; 10-14 moderate; 15-21 severe): 0 Source: Developed by Drs. Maximilian Mendieta, Cuca Harper, Roscoe Rodriguez and colleagues, with an educational linette from [employer]. CASA-7 Assessment Billing CASA-7 Assessment Tool: CASA-7 Assessment 25284 Review of Systems Const All systems reviewed & are unremarkable except as noted in HPI and below Eyes Reports no additional complaints, Denies change in vision and Denies other visual disturbances Card Denies chest pain at rest, Denies chest pain with activity, Denies edema, Denies irregular heart rhythm, Denies claudication, Denies dyspnea, Denies dyspnea on exertion, Denies orthopnea, Denies paroxysmal nocturnal dyspnea and Denies slow heart rate Resp Denies cough, Denies dyspnea and Denies dyspnea on exertion GI Denies abdominal pain, Denies change in bowel habits, Denies excessive flatus, Denies nausea and Denies vomiting Denies urinary hesitancy, Denies urinary incontinence and Denies urinary urgency Musc Denies abnormal gait, Denies atrophy, Denies deformity and Denies limited range of motion Skin/Breast Denies bleeding lesions, Denies changing lesions and Denies rash Neuro Denies abnormal gait and Denies lack of coordination Physical exam (Primary Care) Vital Signs: Last Vital Signs Pulse 70 09/01/23 16:49 Resp 16 09/01/23 16:49 BP 142/88 H 09/01/23 16:49 Pulse Ox 99 09/01/23 16:49 Oxygen Delivery Method Room Air 09/01/23 16:49 BMI result Body Mass Index 32.6 Tobacco/Smoking Status: Tobacco use Status Tobacco use date assessed 09/01/23 09/01/23 16:50 Patient Tobacco Use Status Never used Tobacco 09/01/23 16:49 e-Cigarette/Vaping Use Never Used 09/01/23 16:49 PHQ-9: PHQ-9 Score PHQ-9: Total score 0 09/01/23 17:08 Depression Screening Interpretation: Negative Thrive Assessment: Date of Thrive Assessment Date Thrive assessed 09/01/23 09/01/23 16:51 Currently or been in a relationship where the following occur: no concerns reported Eyes General: appearance normal, both eyes and all related structures Eyelids: Yes eyelids normal Conjunctivae: conjunctivae normal Neck Neck: Yes normal visual inspection and Yes supple Resp Effort & Inspection: normal respiratory effort Auscultation: clear to auscultation bilaterally Cardio Jugular venous distension: no JVD Rate: regular rate Rhythm: regular rhythm Heart sounds: S1 normal heart sound present and S2 normal heart sound present Extrem General: Yes full ROM Assessment and Plan Assessment & Plan (1) Essential hypertension: Code(s): I10 - Essential (primary) hypertension Plan: Continue hydrochlorothiazide. Increase amlodipine from 5 mg to 10 mg. Continue lisinopril 40 mg. Blood pressure goal is equal or less than 130/80. Recheck blood pressure with nurse navigator in 3 weeks. (2) Hypothyroidism: Code(s): E03.9 - Hypothyroidism, unspecified Qualifiers: Hypothyroidism type: acquired Qualified Code(s): E03.9 - Hypothyroidism, unspecified Plan: Continue levothyroxine. Monitor TSH. (3) Dyslipidemia: Code(s): E78.5 - Hyperlipidemia, unspecified Plan: Continue statins. (4) Insomnia: Code(s): G47.00 - Insomnia, unspecified Qualifiers: Insomnia type: primary Qualified Code(s): F51.01 - Primary insomnia Plan: Start dressed prn. Orders: Orders Thyroid Stimulating Hormone Today E03.9 - Hypothyroidism, unspecified Liver Panel Today R74.01 - Elevation of levels of liver transaminase levels Vitamin D 25-OH Total Today E55.9 - Vitamin D deficiency, unspecified Medications: New trazodone 50 mg PO BEDTIME 30 days PRN 30 tabs 1RF sleep naproxen 500 mg PO BID 30 days PRN 20 tabs 0RF pain amlodipine 10 mg PO DAILY 90 days 90 tabs 0RF I10 - Essential (primary) hypertension Refilled cholecalciferol (vitamin D3) 25 mcg PO DAILY 90 days 90 caps 3RF Discontinued amlodipine Discontinued Reason: No Longer Medically Relevant 5 mg PO DAILY 90 tabs 3RF melatonin Discontinued Reason: Patient Completed Course 5 mg PO BEDTIME 90 days PRN 90 tabs 1RF sleep Coding Level of Care Code Est Pt Level 4 (63120) Diagnoses Essential hypertension I10 Acquired hypothyroidism E03.9 Hypothyroidism type: acquired Dyslipidemia E78.5 Primary insomnia F51.01 Insomnia type: primary Additional Codes CASA-7 Assessment Billing - CASA-7 Assessment Tool: CASA-7 Assessment 51694 ([id number]) Time Spent (min) 23
== END 2023-09-01 17:14 | disposition home or self-care (01) ==
PROVIDERS: PCP Internal Medicine; Visit Provider Internal Medicine
DX: I10 Essential (primary) hypertension (principal); E03.9 Hypothyroidism, unspecified; E78.5 Hyperlipidemia, unspecified; F51.01 Primary insomnia
CPT/HCPCS: 99214

== ENCOUNTER 2023-09-10 07:49 | Outpatient (REF) | payer OTHER, SELFPAY ==
[2023-09-10 08:57] LABS: Alanine Aminotransferase 19 U/L (0-40); Albumin Level 4.4 g/dL (3.5-5.0); Alkaline Phosphatase 101 U/L (39-117); Anion Gap 10 (12-20); Aspartate Amino Transferase 20 U/L (5-37); Bilirubin Direct 0.2 mg/dL (0.0-0.5); Bilirubin Total 0.5 mg/dL (0.0-1.0); Blood Urea Nitrogen 11 mg/dL (9-16); Calcium 9.6 mg/dL (8.4-10.2); Carbon Dioxide 27 mmol/L (22-29); Chloride 106 mmol/L (96-108); Cholesterol 155 mg/dL (<200); Estimated Glomerular Filt Rate > 60; Glucose Fasting 91 mg/dL (60-99); HDL Cholesterol 61 mg/dL (>40); LDL Cholesterol Calculated 86 mg/dL (<100); Sodium 139 mmol/L (135-145); Total Protein 7.1 g/dL (6.5-8.0); Triglycerides 40 mg/dL (<150)
[2023-09-10 09:12] LABS: Thyroid Stimulating Hormone 0.84 uIU/mL (0.32-4.0); Vitamin D 25-OH Total 27.5 ng/mL (>30)
== END 2023-09-10 07:50 | disposition home or self-care (01) ==
LOC: HO.LAB 07:49
PROVIDERS: PCP Internal Medicine; Visit Provider Internal Medicine
DX: E03.9 Hypothyroidism, unspecified (principal); R74.01 Elevation of levels of liver transaminase levels; E55.9 Vitamin D deficiency, unspecified; I10 Essential (primary) hypertension; E78.5 Hyperlipidemia, unspecified
CPT/HCPCS: 36415; 80053; 80061; 80076; 82248; 82306; 84443

== ENCOUNTER 2023-11-15 09:57 | Emergency (ER) | payer OTHER, SELFPAY ==
[2023-11-15 10:09] VITALS: BP 160/90; PULSE 76; RESP 18; TEMP 36.8; O2SAT 100
[2023-11-15 10:34] VITALS: BMI 41.2
--- NOTE | 2023-11-15 10:35 | ED_ITS ---
HPI - General Adult General Chief complaint: Skin/Abscess/Foreign Body Stated complaint: rash Time Seen by Provider: 11/15/23 10:11 Source: patient and nursing unit clerk Mode of arrival: ambulatory Limitations: language barrier History of Present Illness HPI narrative: Patient is a 63-year-old Hebrew-speaking male presenting to the emergency department with complaint of pruritic full body rash since Wednesday. He took loratadine which was previously prescribed to him. He denies any difficulty breathing or shortness of breath. Denies any swelling to lips, tongue. Denies any abdominal pain, nausea, vomiting. He reports that his lisinopril dose was increased 1 month ago but denies any other medication changes. Denies any fevers. MD complaint: rash Onset (ago): day(s) Associated symptoms: denies other symptoms Treatments prior to arrival: other Related Data Previous Rx's Medication Instructions Recorded atorvastatin 20 mg tablet 20 mg PO QPM 90 days #90 tabs 12/12/21 polyethylene glycol 3350 17 238 g PO ONCE 1 day #238 grams 04/22/22 gram/dose oral powder (Miralax) Grab bar #1 ea 09/03/22 handheld shower head #1 ea 09/03/22 raised toilet seat #1 ea 09/03/22 walker #1 ea 09/03/22 blood pressure monitor #1 ea 01/29/23 lorazepam 1 mg tablet (Ativan) 1 mg PO BEDTIME PRN sleep #10 tabs 05/10/23 lorazepam 1 mg tablet 1 mg PO BEDTIME PRN anxiety 30 06/16/23 days #30 tabs loratadine 10 mg tablet (Allergy 10 mg PO DAILY 90 days #90 tabs 07/09/23 Relief (loratadine)) adult diapers pull-ups #240 ea 08/02/23 levothyroxine 200 mcg tablet 200 mcg PO DAILY 90 days #90 tabs 08/04/23 amlodipine 10 mg tablet 10 mg PO DAILY 90 days #90 tabs 09/01/23 naproxen 500 mg tablet 500 mg PO BID PRN pain 30 days #20 09/01/23 tabs trazodone 50 mg tablet 50 mg PO BEDTIME PRN sleep 30 days 09/01/23 #30 tabs acetaminophen 500 mg tablet 1,000 mg (2 x 500 mg) PO Q6H PRN 09/22/23 fever or pain 30 days #120 tabs triamcinolone acetonide 0.5 % 1 appl topical DAILY PRN rash #15 09/22/23 topical ointment grams cholecalciferol (vitamin D3) 25 25 mcg PO DAILY 90 days #90 caps 10/15/23 mcg (1,000 unit) capsule ammonium lactate 12 % topical cream 1 appl topical BID PRN dry skin 90 11/06/23 days #385 grams ibuprofen 600 mg tablet 600 mg PO Q6H PRN fever or pain 11/06/23 #30 tabs disposable gloves #200 ea 11/08/23 personal wipes #300 ea 11/08/23 underpads (Bed Underpads) #100 ea 11/08/23 hydrochlorothiazide 25 mg tablet 25 mg PO DAILY 90 days #90 tabs 11/13/23 lisinopril 40 mg tablet 40 mg PO DAILY 90 days #90 tabs 11/13/23 hydrocortisone 1 % topical cream 1 appl topical TID PRN rash #28.35 11/15/23 grams Allergies Allergy/AdvReac Type Severity Reaction Status Date / Time No Known Allergies Allergy Verified 09/01/23 17:05 [No Known Allergies*] Review of Systems Review of Systems: As per HPI. Yes all other systems are reviewed and are negative Constitutional: Constitutional: Reports as per HPI PMFSH Past Medical History Medical History Allergic rhinitis due to allergen Obese Hypothyroidism Insomnia Dyslipidemia Essential hypertension Surgical History History of open reduction and internal fixation (ORIF) procedure Family History Family History Mother Diabetes mellitus Father Hypertension Mental health disorder Social History Social History Housing: Apartment Alcohol intake: current Alcohol intake frequency: holidays/special occasions only Alcohol type: beer Patient Tobacco Use Status: Never used Tobacco e-Cigarette/Vaping Use: Never Used Second Hand Smoke Exposure: No Advance Directives Date on File: 10/23/22 service: No Current occupational status: disabled Cognitive needs: Yes (cane) Hearing needs: No Vision needs: No Physical Exam ED Vital Signs: Vital Signs - 24 hr 11/15/23 10:09 Temperature 98.3 F Pulse Rate 76 Respiratory Rate 18 Blood Pressure 160/90 H Pulse Oximetry 100 Oxygen Delivery Method Room Air BMI result Body Mass Index 41.2 Vital signs have been reviewed and appear to be correct. Blood pressure elevated. Heart rate normal. Respiratory rate normal. Temperature normal. Oxygen saturation normal. Const General: cooperative, healthy appearing and no acute distress Orientation/consciousness: oriented to person, oriented to place, oriented to time and patient oriented x3 Limitations: no limitations HENMT Head: Yes normocephalic and Yes atraumatic Ears: external ears normal General nose exam: Normal external nose present Face and sinus: Yes face symmetric Mouth: lip normal, oropharynx normal and moist mucous membranes Throat: Yes uvula midline and No uvular edema Eyes Pupils: Equal, round and reactive pupils present Neck Neck: Yes normal visual inspection and Yes supple Resp Effort & Inspection: normal respiratory effort and able to speak in complete sentences Auscultation: clear to auscultation bilaterally Cardio Rate: regular rate Rhythm: regular rhythm Heart sounds: S1 normal heart sound present and S2 normal heart sound present GI Palpation (GI): Soft to palpation and nontender Auscultation: normoactive bowel sounds General: Yes no CVA tenderness Back/Spine/Pelvis Back: no CVA tenderness Skin Other: Diffuse erythematous maculopapular rash to trunk, extremities General skin exam: elasticity normal and turgor normal Neuro General: oriented to person, oriented to place, oriented to time, patient oriented x3, moves all extremities, no focal motor deficits and CN's II-XI intact bilaterally Cranial nerves: Yes Equal, round and reactive pupils present Cognition (Neuro): normal cognition Extrem General: Yes full ROM, Yes no pedal edema and Yes no calf tenderness Psych Mental Status: mental status grossly normal Affect: normal affect Thought process: Normal thought process present Medical Decision Making Medical Decision Making MDM Narrative: Patient is a 63-year-old Hebrew-speaking male presenting to the emergency department with complaint of pruritic full body rash since Wednesday. On exam patient is awake, A+Ox3, VS WNL, afebrile, normal neurological exam without focal deficits, physical exam findings as above. Given reported symptoms and physical exam findings, initial differential includes contact dermatitis, atopic dermatitis, viral exanthem. Do not suspect secondary syphillis, DRESS, SJS/TEN. Advised patient to continue using the loratadine, will prescribe hydrocortisone cream, and advised patient to follow up with his PCP. Plan discussed with patient via nursing unit clerk at bedside as well as return precautions and all instructions. Patient verbalized understanding of and agreement with plan. Differential Diagnosis Differential Diagnoses: The differential diagnosis associated with the presentation includes As per MDM. External Record Review External record reviewed: Inpatient record, Office record and Outpatient record Prescription Management I considered prescription management with: Other Discharge Plan Discharge Clinical Impression: Rash and nonspecific skin eruption Patient Disposition: Home, Self-Care Instructions: Contact Dermatitis (DC), Acute Rash (ED) Additional Instructions: You were seen in the emergency department for a rash. You should continue to use the loratadine. You are being prescribed a topical cream which you can use for itching. Please call your primary care provider for a follow up appointment. Return to the emergency department if the rash worsens, you develop shortness of breath or difficulty breathing, chest pain, fever or any other concerning symptoms. Prescriptions: New hydrocortisone 1 % cream 1 appl topical TID PRN (Reason: rash) Qty: 28.35 0RF No Action polyethylene glycol 3350 [Miralax] 17 gram/dose powder 238 g PO ONCE 1 Days Qty: 238 0RF Rx Instructions: take orally as directed prior to colonoscopy (DME) blood pressure monitor Kit See Rx Instructions .Route Qty: 1 0RF Rx Instructions: As directed lorazepam 1 mg tablet 1 mg PO BEDTIME PRN (Reason: anxiety) 30 Days Qty: 30 0RF loratadine [Allergy Relief (loratadine)] 10 mg tablet 10 mg PO DAILY 90 Days Qty: 90 3RF (DME) adult diapers pull-ups large See Rx Instructions .Route .MEDSUPPLY Qty: 240 11RF Rx Instructions: As directed levothyroxine 200 mcg tablet 200 mcg PO DAILY 90 Days Qty: 90 1RF acetaminophen 500 mg tablet 1,000 mg PO Q6H PRN (Reason: fever or pain) 30 Days Qty: 120 1RF triamcinolone acetonide 0.5 % ointment 1 appl topical DAILY PRN (Reason: rash) Qty: 15 0RF cholecalciferol (vitamin D3) 25 mcg (1,000 unit) capsule 25 mcg PO DAILY 90 Days Qty: 90 3RF ammonium lactate 12 % cream 1 appl topical BID PRN (Reason: dry skin) 90 Days Qty: 385 1RF ibuprofen 600 mg tablet 600 mg PO Q6H PRN (Reason: fever or pain) Qty: 30 0RF (DME) disposable gloves Misc See Rx Instructions .Route Qty: 200 6RF Rx Instructions: as needed (DME) personal wipes See Rx Instructions .Route .MEDSUPPLY Qty: 300 11RF Rx Instructions: As directed (DME) underpads [Bed Underpads] Pad See Rx Instructions .Route Qty: 100 6RF Rx Instructions: Use 2 to 4 bed underpads once a day hydrochlorothiazide 25 mg tablet 25 mg PO DAILY 90 Days Qty: 90 1RF lisinopril 40 mg tablet 40 mg PO DAILY 90 Days Qty: 90 1RF lorazepam [Ativan] 1 mg tablet 1 mg PO BEDTIME PRN (Reason: sleep) Qty: 10 0RF atorvastatin 20 mg tablet 20 mg PO QPM 90 Days Qty: 90 3RF (DME) walker Misc See Rx Instructions .Route Qty: 1 0RF Rx Instructions: as directed (DME) Grab bar Misc See Rx Instructions .Route Qty: 1 0RF Rx Instructions: As directed (DME) handheld shower head See Rx Instructions .Route .MEDSUPPLY Qty: 1 0RF Rx Instructions: As directed (DME) raised toilet seat See Rx Instructions .Route .MEDSUPPLY Qty: 1 0RF Rx Instructions: As directed trazodone 50 mg tablet 50 mg PO BEDTIME PRN (Reason: sleep) 30 Days Qty: 30 1RF naproxen 500 mg tablet 500 mg PO BID PRN (Reason: pain) 30 Days Qty: 20 0RF amlodipine 10 mg tablet 10 mg PO DAILY 90 Days Qty: 90 0RF Print Language: Hebrew
[2023-11-15 10:52] VITALS: BP 160/90; PULSE 76; RESP 18; TEMP 36.8; O2SAT 100
== END 2023-11-15 10:53 | disposition home or self-care (01) ==
PROVIDERS: Emergency Provider Emergency Medicine; PCP Internal Medicine
DX: R21 Rash and other nonspecific skin eruption (principal); I10 Essential (primary) hypertension; Z79.899 Other long term (current) drug therapy
CPT/HCPCS: 99282; 99283

== ENCOUNTER 2023-12-09 17:19 | Outpatient (AMB) | payer OTHER, SELFPAY ==
[2023-12-09 17:25] VITALS: BP 140/90; BMI 33.7
--- NOTE | 2023-12-09 17:25 | MHC.PC.OV ---
Vital Signs 12/09/23 17:25 Height 5 ft 6 in Weight 209 lb BMI 33.7 BP 140/90 H Blood Pressure Location Lt brachial Position Sitting Intake Visit Reasons: [facility] [place] for itchiness on both legs Flue Lining Dipper Required: No Accompanied by: niece Allergies No Known Allergies [No Known Allergies*] Allergy (Verified 12/09/23 17:26) Medication List - Last Reconciled 12/09/23 by Melissa Mcrae MD acetaminophen 1,000 mg (2 x 500 mg) PO Q6H PRN 30 days [adult diapers pull-ups As directed] ammonium lactate 12% 1 appl topical BID PRN 90 days atorvastatin 20 mg PO QPM 90 days blood pressure monitor As directed cetirizine 10 mg PO DAILY PRN 90 days cholecalciferol (vitamin D3) 25 mcg PO DAILY 90 days disposable gloves as needed Grab bar As directed [handheld shower head As directed] hydrochlorothiazide 25 mg PO DAILY 90 days hydrocortisone 1% 1 appl topical TID PRN ibuprofen 600 mg PO Q6H PRN levothyroxine 200 mcg PO DAILY 90 days lisinopril 40 mg PO DAILY 90 days [personal wipes As directed] [raised toilet seat As directed] trazodone 50 mg PO BEDTIME PRN 30 days triamcinolone acetonide 0.5% 1 appl topical DAILY PRN underpads (Bed Underpads) Use 2 to 4 bed underpads once a day walker as directed Tobacco use date assessed: 09/01/23 Dental Screening Dental Screen Date: 09/01/23 HPI HPI Comments History of Present Illness Details This is a 63-year-old male with hypertension, dyslipidemia and hypothyroidism that comes today accompanied by 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 He went to ER and was given cetirizine 10 mg 2 tablets once a day with no relief. He also was given hydrocortisone cream that did not provide any relief either. I will order an allergy test and I will also give him prednisone pack. Blood pressure normal to elevated and he has not take his amlodipine for over a month. I will restart him on amlodipine but on a lower dose. Lipid panel and TSH were ordered. Compliant with medications. Denies any recent traveling, any new foods or contact with plants. No fever. Has not been in the [employer]. [facility] Medical History Allergic rhinitis due to allergen Obese Hypothyroidism Insomnia Dyslipidemia Essential hypertension Surgical History History of open reduction and internal fixation (ORIF) procedure Family History Mother Diabetes mellitus Father Hypertension Mental health disorder Social History Housing: Apartment Alcohol intake: current Alcohol intake frequency: holidays/special occasions only Alcohol type: beer Patient Tobacco Use Status: Never used Tobacco e-Cigarette/Vaping Use: Never Used Second Hand Smoke Exposure: No Advance Directives Date on File: 10/23/22 service: No Current occupational status: disabled Cognitive needs: Yes (cane) Hearing needs: No Vision needs: No Questionnaire Thrive Questionnaire Date Thrive assessed: 09/01/23 CASA-7 AMB Questionnaire CASA-7 Date CASA - 7 assessed: 09/01/23 Source: Developed by Drs. Maximilian Mendieta, Cuca Harper, Roscoe Rodriguez and colleagues, with an educational linette from [employer]. Review of Systems Const All systems reviewed & are unremarkable except as noted in HPI and below Eyes Reports no additional complaints, Denies change in vision and Denies other visual disturbances Card Denies chest pain at rest, Denies chest pain with activity, Denies edema, Denies irregular heart rhythm, Denies claudication, Denies dyspnea, Denies dyspnea on exertion, Denies orthopnea, Denies paroxysmal nocturnal dyspnea and Denies slow heart rate Resp Denies cough, Denies dyspnea and Denies dyspnea on exertion Physical exam (Primary Care) Vital Signs: Last Vital Signs BP 140/90 H 12/09/23 17:25 BMI result Body Mass Index 33.7 Tobacco/Smoking Status: Tobacco use Status Tobacco use date assessed 09/01/23 12/09/23 17:34 Patient Tobacco Use Status Never used Tobacco 12/09/23 17:34 e-Cigarette/Vaping Use Never Used 12/09/23 17:34 Thrive Assessment: Date of Thrive Assessment Date Thrive assessed 09/01/23 12/09/23 17:34 Neck Neck: Yes normal visual inspection and Yes supple Resp Effort & Inspection: normal respiratory effort Auscultation: clear to auscultation bilaterally Cardio Jugular venous distension: no JVD Rate: regular rate Rhythm: regular rhythm Heart sounds: S1 normal heart sound present and S2 normal heart sound present Skin Rashes: rashes noted Assessment and Plan Assessment & Plan (1) Rash: Code(s): R21 - Rash and other nonspecific skin eruption Plan: RAST test ordered. Start prednisone pack. (2) Essential hypertension: Code(s): I10 - Essential (primary) hypertension Plan: Continue lisinopril and hydrochlorothiazide. Start amlodipine 2.5 mg once a day. Blood pressure will be recheck in 3 weeks by nurse. (3) Dyslipidemia: Code(s): E78.5 - Hyperlipidemia, unspecified Plan: Continue statins. Repeat lipid panel. Try to follow a low-cholesterol diet. (4) Hypothyroidism: Code(s): E03.9 - Hypothyroidism, unspecified Qualifiers: Hypothyroidism type: acquired Qualified Code(s): E03.9 - Hypothyroidism, unspecified Plan: Continue levothyroxine. Monitor TSH. Orders: Orders Rast Allergen Today R21 - Rash and other nonspecific skin eruption Lipid Panel 5 Months E78.5 - Hyperlipidemia, unspecified, I10 - Essential (primary) hypertension Comprehensive [place]. Panel Fast 5 Months I10 - Essential (primary) hypertension Thyroid Stimulating Hormone 5 Months E03.9 - Hypothyroidism, unspecified Medications: New amlodipine 2.5 mg PO DAILY 90 tabs 1RF 90 days I10 - Essential (primary) hypertension underpads (Bed Underpads) Use 2 pads once a day 100 ea 6RF R32 - Unspecified urinary incontinence prednisone Take 4 tabs for 2 days, then 3 tabs for 2 days, then 2 tabs for 2 days, then 1 tab for 2 days 10 mg PO DIRECTED 20 tabs 0RF 8 days R21 - Rash and other nonspecific skin eruption Refilled acetaminophen 1,000 mg (2 x 500 mg) PO Q6H PRN 120 tabs 1RF fever or pain 30 days disposable gloves as needed 200 ea 6RF R32 - Unspecified urinary incontinence atorvastatin 20 mg PO QPM 90 tabs 3RF 90 days E03.9 - Hypothyroidism, unspecified Discontinued [adult diapers pull-ups] Discontinued Reason: No Longer Medically Relevant As directed 240 ea 11RF R32 - Unspecified urinary incontinence Coding Level of Care Code Est Pt Level 4 (88717) Diagnoses Rash R21 Essential hypertension I10 Dyslipidemia E78.5 Acquired hypothyroidism E03.9 Hypothyroidism type: acquired Time Spent (min) 21
== END 2023-12-09 17:51 | disposition home or self-care (01) ==
PROVIDERS: PCP Internal Medicine; Visit Provider Internal Medicine
DX: R21 Rash and other nonspecific skin eruption (principal); I10 Essential (primary) hypertension; E78.5 Hyperlipidemia, unspecified; E03.9 Hypothyroidism, unspecified
CPT/HCPCS: 99214

== ENCOUNTER 2023-12-10 07:43 | Outpatient (REF) | payer OTHER, SELFPAY ==
[2023-12-24 07:37] LABS: Immunoglobulin A 155; Transglutaminase IgA <1.0
== END 2023-12-10 07:44 | disposition home or self-care (01) ==
LOC: HO.LAB 07:43
PROVIDERS: PCP Internal Medicine; Visit Provider Internal Medicine
DX: R21 Rash and other nonspecific skin eruption (principal)
CPT/HCPCS: 36415; 82784; 86003; 86364

== ENCOUNTER 2024-05-01 17:20 | Outpatient (AMB) | payer OTHER, SELFPAY ==
--- NOTE | 2024-05-01 17:26 | A.OFFVIS_ITS ---
Intake Vital Signs 05/01/24 17:33 Height 5 ft 6 in Weight 204 lb BMI 32.9 BP 136/76 Blood Pressure Location Lt brachial Position Sitting Intake Visit Reasons: AWV Intake Note: Patient here for Annual Wellness visit Event Attendant Required: No Accompanied by: niece Allergies No Known Allergies [No Known Allergies*] Allergy (Verified 05/01/24 18:01) Medication List - Last Reconciled 05/01/24 by Melissa Mcrae MD acetaminophen 1,000 mg (2 x 500 mg) PO Q6H PRN 30 days amlodipine 2.5 mg PO DAILY 90 days ammonium lactate 12% 1 appl topical BID PRN 90 days atorvastatin 20 mg PO QPM 90 days blood pressure monitor As directed cetirizine 10 mg PO DAILY PRN 90 days cholecalciferol (vitamin D3) 25 mcg PO DAILY 90 days disposable gloves as needed Grab bar As directed [handheld shower head As directed] hydrochlorothiazide 25 mg PO DAILY 90 days hydrocortisone 1% 1 appl topical TID PRN ibuprofen 600 mg PO Q6H PRN levothyroxine 200 mcg PO DAILY 90 days lisinopril 40 mg PO DAILY 90 days [personal wipes As directed] [raised toilet seat As directed] trazodone 50 mg PO BEDTIME PRN 30 days triamcinolone acetonide 0.5% 1 appl topical DAILY PRN underpads (Bed Underpads) Use 2 pads once a day underpads (Bed Underpads) Use 2 to 4 bed underpads once a day walker as directed HPI HPI Comments 2 History of Present Illness Details This is a 63-year-old male with mild major depression that comes accompanied by healthcare proxy which is her niece for his Medicare wellness exam. He will be referred to open access for colonoscopy. Depression is present and I will start him on fluoxetine. Mini-mental was not able to be com pleted due to patient being blind. Ppp handed to patient. [place] of care was done. He complains of right knee pain and will be referred to Ortho. He also has hand paresthesias more on the left. [facility] Medical History (Updated 05/01/24 @ 19:47 by Melissa Mcrae MD) Allergic rhinitis due to allergen Obese Hypothyroidism Insomnia Dyslipidemia Essential hypertension Surgical History History of open reduction and internal fixation (ORIF) procedure Family History (Updated 05/01/24 @ 18:09 by Melissa Mcrae MD) Mother Diabetes mellitus Father Hypertension Mental health disorder Social History Housing: Apartment Alcohol intake: current Alcohol intake frequency: holidays/special occasions only Alcohol type: beer Patient Tobacco Use Status: Never used Tobacco e-Cigarette/Vaping Use: Never Used Second Hand Smoke Exposure: No Advance Directives Date on File: 10/23/22 service: No Current occupational status: disabled Cognitive needs: Yes (cane) Hearing needs: No Vision needs: No Questionnaire Medicare Wellness Checkup What gender do you identify with?: male During the past 4 weeks, how much have you been bothered by emotional problems such as feeling anxious, depressed, irritable, sad or downhearted, and blue?: extremely During the past 4 weeks, has your physical & emotional health limited your socia l activities with family, friends, neighbors, or groups?: extremely During the past 4 weeks, how much bodily pain have you generally had?: moderate pain During the past 4 weeks, was someone available to help you if you needed & wanted help?: yes, some During the past 4 weeks, what was the hardest physical activity you could do for at least 2 minutes?: very light Can you get to places out of walking distance without help? (For eg., can you travel alone on buses, taxis or drive your car?): No Can you go shopping for groceries or clothes without someone's help?: No Can you prepare your own meals?: No Can you do your housework without help?: No Because of any health problems, do you need the help of another person with your personal care needs such as eating, bathing, dressing or getting around the ho use?: Yes Can you handle your own money without help?: No During the past 4 weeks, how would you rate your health in general?: fair During the past 4 weeks how have things been going for you?: pretty bad Are you having difficulties driving your car?: not applicable, I don't use a car Do you always fasten your seat belt when you are in a car?: yes, usually During past 4 weeks, have you been bothered by the following: never: Falling or dizzy when standing up, Sexual problems?, Teeth or denture problems?, Problems using the telephone? and Tiredness or fatigue? and seldom: Trouble eating well? Have you fallen 2 or more times in the past year?: Yes Are you afraid of falling?: Yes Are you a smoker?: no During the past 4 weeks, how many drinks of wine, beer, or other alcoholic beverages did you have?: 2-5 drinks per week Do you exercise for about 20 minutes 3 or more times a week?: no, I usually do not exercise this much Have you been given information to help with the following?: no: Hazards in your house that might hurt you? and no: Keeping track of your medications? How often do you have trouble taking medicines the way you have been told to take them?: I always take medicine as prescribed How confident are you that you can control & manage most of your health problems?: not very confident What is your race?: or origin or descent Mini Mental State Exam (MMSE) Orientation What is the (year) (season) (date) (day) (month)?: season and day Where are we (state) (county) (town or city) (hospital) (floor)?: state, county, town or city, hospital/clinic and floor Registration Name of 3 unrelated objects clearly and slowly, then ask patient to repeat all 3 of them. (1st repeat determines score. Make sure they can repeat all three): object 1, object 2 and object 3 Recall Ask patient to repeat the 3 items from question #3.: object 1, object 2 and object 3 Language Show patient a wristwatch & ask what it is. Repeat for pencil.: watch and pencil Ask the patient to repeat the phrase 'No ifs, ands, or buts' after you.: correct Ask the patient to 'take a piece of paper with their right hand' 'fold paper in half' 'place paper on floor': take paper in right hand, fold paper in half and place paper on floor Score Score: 19 Activity of Daily Living Bathing - sponge bath, tub bath or shower: receives help in bathing only one body part (such as back or leg) Dressing - getting clothes from closets & drawers, including inner/outer garments & fasteners.: receives help getting clothes or getting dressed, or stays undressed Toileting - going to the 'toilet room' for urine/bowel elimination & cleaning self/arranging clothes: receives help going to toilet room, cleaning self or arranging clothes Transfer: moves in & out of bed or chair with help Continence: has occasional 'accidents' Feeding: feeds self without help Total Score: 1 Information obtained from: informant Using telephone: needs assistance Traveling: dependent Shopping: dependent Preparing meals: dependent Housework: dependent Taking medicine: dependent Managing money: dependent PHQ-9 Over the last 2 weeks, how often have you been bothered by any of the following problems? 1. Little interest or pleasure in doing things: not at all 2. Feeling down, depressed, or hopeless: nearly every day 3. Trouble falling or staying asleep, or sleeping too much: nearly every day 4. Feeling tired or having little energy: more than half the days 5. Poor appetite or overeating: nearly every day 6. Feeling bad about yourself - or that you are a failure or have let yourself or your family down: not at all 7. Trouble concentrating on things, such as reading the newspaper or watching television: not at all 8. Moving or speaking so slowly that other people could have noticed. Or the opposite - being so fidgety or restless that you have been moving around a lot more than usual: nearly every day 9. Thoughts that you would be better off or of hurting yourself in some way: not at all Total score: 14 Depression Screening Interpretation: Positive (no suicidal thoughts) Depression Screening Follow-up: Existing condition, New Medication prescribed and Follow-up Visit Requested Depression Screening Done: Yes 16943 - PHQ-9 Billing: Yes Source: Developed by Drs. Maximilian Mendieta, Cuca Harper, Roscoe Rodriguez and colleagues, with an educational linette from [employer]. CASA-7 AMB Questionnaire CASA-7 Date CASA - 7 assessed: 05/01/24 Feeling nervous, anxious, or on edge: 3 = Nearly every day Not being able to stop or control worryin = Not at all Worrying too much about different things: 2 = More than half the days Trouble relaxin = Several days Being so restless that it is hard to sit still: 1 = Several days Becoming easily annoyed or irritable: 1 = Several days Feeling afraid as if something awful might happen: 2 = More than half the days Total CASA-7 score (0-4 normal; 5-9 mild; 10-14 moderate; 15-21 severe): 10 Source: Developed by Drs. Maximilian Mendieta, Cuca Harper, Roscoe Rodriguez and colleagues, with an educational linette from [employer]. Thrive Questionnaire Date Thrive assessed: 05/01/24 I am a: Patient What is your living situation today?: I have a steady place to live Within the past 12 months, did the food you bought not last and you didn't have the money to get more?: Never true Within the past 12 months, did you worry whether your food would run out before you got money to buy more?: Never true Do you have trouble paying for medicines?: No Do you have trouble getting transportation to medical appointments?: No Do you have trouble paying your heating and electricity bill?: No Do you have trouble taking care of your child, family member or friend?: No Do you have trouble with day-to-day activities such as bathing, preparing meals, shopping, managing finances, etc.?: No Are you currently unemployed and looking for a job?: No Are you interested in more education?: No Please select the resources that you would like help with: None Currently or been in a relationship where the following occur: No concerns repor shaquille THRIVE Score: 0 AUDIT C Alcohol Use Questionnaire (AUDIT-C) 1. How often do you have a drink containing alcohol?: Monthly or less 2. How many drinks containing alcohol do you have on a typical day when you are drinking?: 1 or 2 3. How often do you have six or more drinks on one occasion?: Never Total Score: 1 Review of Systems Const All systems reviewed & are unremarkable except as noted in HPI and below Card Denies chest pain at rest, Denies chest pain with activity, Denies edema, Denies irregular heart rhythm, Denies claudication, Denies dyspnea, Denies dyspnea on exertion, Denies orthopnea, Denies paroxysmal nocturnal dyspnea and Denies slow heart rate Resp Denies cough, Denies dyspnea and Denies dyspnea on exertion GI Denies abdominal pain, Denies change in bowel habits, Denies excessive flatus, Denies nausea and Denies vomiting Reports urinary incontinence Musc Reports arthralgias Physical Exam Vital Signs: Last Vital Signs BP 136/76 05/01/24 17:33 BMI result Body Mass Index 32.9 Eyes Other: blind patient Resp Effort & Inspection: normal respiratory effort Auscultation: clear to auscultation bilaterally Cardio Jugular venous distension: no JVD Rate: regular rate Rhythm: regular rhythm Heart sounds: S1 normal heart sound present and S2 normal heart sound present Neuro Romberg Test: Negative Assessment & Plan Assessment & Plan (1) Encounter for Medicare annual wellness exam: Code(s): Z00.00 - Encounter for general adult medical examination without abnormal findings Plan: Repeat in a year. (2) Mild major depression: Code(s): F32.0 - Major depressive disorder, single episode, mild Plan: Start fluoxetine. (3) Hand paresthesia: Code(s): R20.2 - Paresthesia of skin Plan: Nerve conduction study ordered. (4) Right knee pain: Code(s): M25.561 - Pain in right knee Qualifiers: Chronicity: chronic Qualified Code(s): M25.561 - Pain in right knee; G89.29 - Other chronic pain Plan: X-ray ordered. Referred to Ortho. Orders: Orders NE nerve conduction velocity Today R20.2 - Paresthesia of skin Comprehensive [place]. Panel Fast Today R20.2 - Paresthesia of skin Lipid Panel Today E78.5 - Hyperlipidemia, unspecified Thyroid Stimulating Hormone Today E03.9 - Hypothyroidism, unspecified Referrals Open Access Screening Colonoscopy Referral Z12.11 - Encounter for screening for malignant neoplasm of colon Orthopedics Referral M25.561 - Pain in right knee Medications: New fluoxetine 10 mg PO DAILY 90 tabs 0RF 90 days F32.0 - Major depressive disorder, single episode, mild Changed From [personal wipes] As directed 300 ea 11RF R32 - Unspecified urinary incontinence To [personal wipes] Use 20 per day as needed 600 ea 11RF R32 - Unspecified urinary incontinence From disposable gloves as needed 200 ea 6RF R32 - Unspecified urinary incontinence To disposable gloves Use 10 per day as needed 200 ea 11RF R32 - Unspecified urinary incontinence Refilled underpads (Bed Underpads) Use 2 pads once a day 100 ea 6RF R32 - Unspecified urinary incontinence ibuprofen 600 mg PO Q6H PRN 30 tabs 0RF fever or pain Quality Reporting (2019) Depression/Bipolar (159/160/161/177) PHQ-9: Total score: 14 Coding Level of Care Code Medicare Subsequent (G0439) Est Pt Level 3 (71002) Diagnoses Encounter for Medicare annual wellness exam Z00.00 Mild major depression F32.0 Hand paresthesia R20.2 Chronic pain of right knee M25.561; G89.29 Chronicity: chronic CPT Codes Advance Care Planning - Advance Care Planning discussion: On file, no changes ([id number]) Time Spent (min) 40 Advance Care Planning Advance Care Planning discussion: On file, no changes Date of discussion: 05/01/24 Who was present: patient , healthcare proxy and me Forms completed: Health Care Proxy Actual minutes spent: 1
[2024-05-01 17:33] VITALS: BP 136/76; BMI 32.9
== END 2024-05-01 18:29 | disposition home or self-care (01) ==
PROVIDERS: PCP Internal Medicine; Visit Provider Internal Medicine
DX: Z00.00 Encounter for general adult medical examination without abnormal findings (principal); F32.0 Major depressive disorder, single episode, mild; R20.2 Paresthesia of skin; M25.561 Pain in right knee; G89.29 Other chronic pain
CPT/HCPCS: 1123F; 99213; G0439

== ENCOUNTER 2024-05-16 07:38 | Outpatient (REF) | payer OTHER, SELFPAY ==
[2024-05-16 08:58] LABS: Alanine Aminotransferase 16 U/L (0-40); Albumin Level 4.3 g/dL (3.5-5.0); Alkaline Phosphatase 80 U/L (39-117); Anion Gap 10 (12-20); Aspartate Amino Transferase 17 U/L (5-37); Bilirubin Total 0.6 mg/dL (0.0-1.0); Blood Urea Nitrogen 17 mg/dL (9-16); Calcium 9.6 mg/dL (8.4-10.2); Carbon Dioxide 27 mmol/L (22-29); Chloride 106 mmol/L (96-108); Cholesterol 114 mg/dL (<200); Estimated Glomerular Filt Rate > 60; Glucose Fasting 101 mg/dL (60-99); HDL Cholesterol 57 mg/dL (>40); LDL Cholesterol Calculated 49 mg/dL (<100); Potassium 3.9 mmol/L (3.3-5.1); Sodium 139 mmol/L (135-145); Total Protein 6.7 g/dL (6.5-8.0); Triglycerides 40 mg/dL (<150)
[2024-05-16 09:04] LABS: Thyroid Stimulating Hormone 0.25 uIU/mL (0.32-4.0)
== END 2024-05-16 07:39 | disposition home or self-care (01) ==
LOC: HO.LAB 07:38
PROVIDERS: PCP Internal Medicine; Visit Provider Internal Medicine
DX: I10 Essential (primary) hypertension (principal); E78.5 Hyperlipidemia, unspecified; E03.9 Hypothyroidism, unspecified
CPT/HCPCS: 36415; 80053; 80061; 84443

== ENCOUNTER 2024-05-19 07:40 | Outpatient (REF) | payer OTHER, SELFPAY ==
--- NOTE | ~2024-05-19 | XR_ITS ---
EXAMINATION: XR KNEE, RIGHT CLINICAL INFORMATION: M17.11 - Unilateral primary osteoarthritis, right knee COMPARISON: None available. TECHNIQUE: Three views of the right knee. FINDINGS: No fracture, dislocation, or focal bony abnormality. Moderate to severe medial compartment, and moderate lateral and patellofemoral compartment joint space narrowing, with prominent marginal osteophytic spurring. There is subchondral sclerosis of the weightbearing surfaces of the medial femoral condyle and medial tibial plateau. There is spurring of the tibial spines. There is trace valgus angulation. There is otherwise normal alignment. There is a small suprapatellar joint effusion on the lateral projection. Soft tissues appear normal. XR/XR knee RT 3V IMPRESSION: 1. No acute findings right knee. 2. Moderate to severe tricompartmental osteoarthrosis, worst in the medial compartment. 3. Small joint effusion. Electronically signed by: Bryant Castillo MD 07/27/2024 03:25 PM [facility] [place]
--- NOTE | ~2024-05-19 | XR_ITS ---
EXAMINATION: XR KNEE, LEFT CLINICAL INFORMATION: M25.562 - Pain in left knee COMPARISON: 11/28/2018 TECHNIQUE: AP view of the left knee. FINDINGS: Moderate to severe medial compartment narrowing, with prominent marginal osteophytic spurring of both compartments. There is spurring of the tibial spines. There is subchondral sclerosis of the weightbearing surfaces of the medial femoral condyle and medial tibial plateau. There is minimal valgus angulation of the joint. No discrete soft tissue abnormality. XR/XR knee LT 1V IMPRESSION: 1. No acute bony abnormality. 2. Moderate to severe bicompartmental osteoarthritis, worst in the medial compartment. Electronically signed by: Bryant Castillo MD 07/27/2024 03:21 PM [facility]
== END 2024-05-19 07:41 | disposition home or self-care (01) ==
LOC: HO.XRAY 07:40
PROVIDERS: PCP Internal Medicine; Visit Provider Physician Assistant
DX: M25.562 Pain in left knee (principal); M17.11 Unilateral primary osteoarthritis, right knee
CPT/HCPCS: 20610; 73560; 73562; 99202; J1010

== ENCOUNTER → 2024-05-19 07:48 | Outpatient (BNV) | payer OTHER, SELFPAY | PROVIDERS: PCP Internal Medicine; Visit Provider Radiology Diagnostic Radiology | DX: M25.562 Pain in left knee (principal); M17.11 Unilateral primary osteoarthritis, right knee | CPT/HCPCS: 73560; 73562 ==

== ENCOUNTER 2024-05-19 08:11 | Outpatient (AMB) | payer OTHER, SELFPAY ==
--- NOTE | 2024-05-19 08:23 | A.OFFVIS_ITS ---
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 Patient reports ongoing pain for about a year with no previous. Patient mentions that his pain is around the whole knee and his pain is worse when he is ambulating. Patient Allergies No Known Allergies [No Known Allergies*] Allergy (Verified 05/19/24 08:25) Medication List - Last Reconciled 05/19/24 by Maddie Levin PA-C acetaminophen 1,000 mg (2 x 500 mg) PO Q6H PRN 30 days amlodipine 2.5 mg PO DAILY 90 days ammonium lactate 12% 1 appl topical BID PRN 90 days atorvastatin 20 mg PO QPM 90 days blood pressure monitor As directed cetirizine 10 mg PO DAILY PRN 90 days cholecalciferol (vitamin D3) 25 mcg PO DAILY 90 days disposable gloves Use 10 per day as needed fluoxetine 10 mg PO DAILY 90 days Grab bar As directed [handheld shower head As directed] hydrochlorothiazide 25 mg PO DAILY 90 days hydrocortisone 1% 1 appl topical TID PRN ibuprofen 600 mg PO Q6H PRN levothyroxine 200 mcg PO DAILY 90 days lisinopril 40 mg PO DAILY 90 days [personal wipes Use 20 per day as needed] [raised toilet seat As directed] trazodone 50 mg PO BEDTIME PRN 30 days triamcinolone acetonide 0.5% 1 appl topical DAILY PRN underpads (Bed Underpads) Use 2 pads once a day underpads (Bed Underpads) Use 2 to 4 bed underpads once a day walker as directed HPI HPI 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 He states he has ongoing pain around his whole knee that is aggravated with stair use and ambulation.Left knee is worse than the right knee. [facility] Medical History Allergic rhinitis due to allergen Obese Hypothyroidism Insomnia Dyslipidemia Essential hypertension Surgical History History of open reduction and internal fixation (ORIF) procedure Family History (Updated 05/01/24 @ 18:09 by Melissa Mcrae MD) Mother Diabetes mellitus Father Hypertension Mental health disorder Social History Housing: Apartment Alcohol intake: current Alcohol intake frequency: holidays/special occasions only Alcohol type: beer Patient Tobacco Use Status: Never used Tobacco e-Cigarette/Vaping Use: Never Used Second Hand Smoke Exposure: No Advance Directives Date on File: 10/23/22 service: No Current occupational status: disabled Cognitive needs: Yes (cane) Hearing needs: No Vision needs: No Review of Systems Const All systems reviewed & are unremarkable except as noted in HPI and below Physical Exam Const General: cooperative, healthy appearing, comfortable, no acute distress, well developed and alert Orientation/consciousness: patient oriented x3 HEENT Head: Yes normal to inspection, Yes normocephalic and Yes atraumatic Eyes General: appearance normal, both eyes and all related structures Resp Effort & Inspection: normal respiratory effort and able to speak in complete sentences Cardio Rate: regular rate Peripheral pulses: Peripheral pulses 2+ throughout GI Palpation (GI): Soft to palpation Skin Lesions: no lesions Rashes: no rashes Neuro General: patient oriented x3 Extrem Other: Bilateral knee: Skin intact, no erythema or joint effusion. Tenderness along the medial and lateral joint line. Full ROM with crepitus. Negative [place]?s. No ligamentous laxity. NVI. ? Office Procedures Joint Injection/Aspiration Joint Injection/Aspiration Primary Site: right knee Secondary Site: left knee Prep: site was prepped using aseptic technique, ethochloride spray was applied and injection warnings given Injected: 80 mg of, DepoMedrol, with 8 mL of, 1% plain lidocaine and in the joint Approach Used: anterolateral Procedure: The patient tolerated the procedure well and there was some relief with the local anesthesia Coding 60107 - Glenohumeral/Tronchanteric Bursa/Intraarticular Procedure code (CPT) selection complete Results Reviewed Results Reviewed: xrays of the right knee obtained show moderate to severe oa Assessment & Plan Assessment & Plan (1) Osteoarthritis of knees, bilateral: Code(s): M17.0 - Bilateral primary osteoarthritis of knee Category: Medical Plan We discussed options today, which include steroid injection. The patient did consent to move forward with the bilateral knee injection, which was tolerated well. I recommended rest, ice, and elevation and OTC anti-inflammatories as needed for discomfort. If symptoms persist or worsen over the next 6-8 weeks, patient will contact the office, otherwise follow-up as needed. Orders: Orders XR knee RT 3V Today M17.11 - Unilateral primary osteoarthritis, right knee XR knee LT 1V Today M25.562 - Pain in left knee Patient Instructions: Scribed for Maddie Levin PA-C, by Arsh Kelly anesthesiology medical doctor, on 05/19/2024 at 8:00 AM EST.? I, Maddie Levin PA-C, have personally reviewed and agree with the information entered by the scribe. Coding Level of Care Code New Pt Level 3 (31618) Complex EM visit Add On G2211 Diagnoses Osteoarthritis of knees, bilateral M17.0 CPT Codes Coding - Joint 7: 22179 - Glenohumeral/Tronchanteric Bursa/Intraarticular ([id number])
== END 2024-05-19 08:48 | disposition home or self-care (01) ==
PROVIDERS: PCP Internal Medicine; Visit Provider Physician Assistant
DX: M17.0 Bilateral primary osteoarthritis of knee (principal)
CPT/HCPCS: 20610; 99203

== ENCOUNTER 2024-08-20 08:32 | Emergency (ER) | payer OTHER, SELFPAY ==
[2024-08-20 08:34] VITALS: BP 145/91; PULSE 66; RESP 16; TEMP 36.6; O2SAT 100; BMI 33.6
--- NOTE | 2024-08-20 08:46 | ED_ITS ---
HPI - Allergic Reaction General Chief complaint: Allergic Reaction Stated complaint: Allergic reaction Time Seen by Provider: 08/20/24 08:40 Source: patient, family (Niece) and assistant clinical director Mode of arrival: ambulatory Limitations: no limitations History of Present Illness ED Provider: DR. Bledsoe HPI narrative: A 63-year-old male Bur[place]ian speaking presented to the emergency department with his niece and caregiver for itching all over her body since yesterday, patient had similar episode past, no difficulty breathing, no shortness of breath, no lip or tongue swelling, no rash. Patient declined any recent use of any antibiotic, no change in his regular medication, no change in his daily routine, no new detergent/soup/body wash. Had similar episode in the past was treated with hydrocortisone 1% cream. Related Data Previous Rx's ?Medication ?Instructions ?Recorded Grab bar #1 ea 09/03/22 handheld shower head #1 ea 09/03/22 raised toilet seat #1 ea 09/03/22 walker #1 ea 09/03/22 blood pressure monitor #1 ea 01/29/23 underpads (Bed Underpads) #100 ea 11/08/23 lisinopril 40 mg tablet 40 mg PO DAILY 90 days #90 tabs 11/13/23 hydrocortisone 1 % topical cream 1 appl topical TID PRN rash #28.35 11/15/23 grams cetirizine 10 mg tablet 10 mg PO DAILY PRN allergy 12/06/23 symptoms 90 days #90 tabs acetaminophen 500 mg tablet 1,000 mg (2 x 500 mg) PO Q6H PRN 12/09/23 fever or pain 30 days #120 tabs atorvastatin 20 mg tablet 20 mg PO QPM 90 days #90 tabs 12/09/23 ammonium lactate 12 % topical cream 1 appl topical BID PRN dry skin 90 01/12/24 days #385 grams triamcinolone acetonide 0.5 % 1 appl topical DAILY PRN rash #15 03/22/24 topical ointment grams disposable gloves #200 ea 05/01/24 fluoxetine 10 mg tablet 10 mg PO DAILY 90 days #90 tabs 05/01/24 ibuprofen 600 mg tablet 600 mg PO Q6H PRN fever or pain 05/01/24 #30 tabs personal wipes #600 ea 05/01/24 underpads (Bed Underpads) #100 ea 05/01/24 amlodipine 2.5 mg tablet 2.5 mg PO DAILY 90 days #90 tabs 05/25/24 hydrochlorothiazide 25 mg tablet 25 mg PO DAILY 90 days #90 tabs 05/25/24 levothyroxine 175 mcg tablet 175 mcg PO DAILY 90 days #90 tabs 06/03/24 cholecalciferol (vitamin D3) 25 25 mcg PO DAILY 90 days #90 caps 06/05/24 mcg (1,000 unit) capsule trazodone 50 mg tablet 50 mg PO BEDTIME PRN sleep 30 days 07/20/24 #30 tabs cetirizine 10 mg tablet 10 mg PO DAILY PRN allergy 08/20/24 symptoms #20 tabs prednisone 20 mg tablet 20 mg PO BID #10 tabs 08/20/24 Allergies Allergy/AdvReac Type Severity Reaction Status Date / Time No Known Allergies Allergy Verified 08/20/24 08:36 [No Known Allergies*] Review of Systems Review of Systems: All other systems are reviewed and are negative Constitutional: Reports as per HPI and Reports no additional constitutional complaints Eyes: Reports as per HPI and Reports no additional eye complaints Reports system reviewed and no additional complaints, except as documented Cardiovascular: Reports as per HPI and Reports no additional cardiovascular complaints Respiratory: Reports as per HPI and Reports no additional respiratory complaints Gastrointestinal: Reports as per HPI and Reports no additional gastrointestinal complaints Genitourinary: Reports no additional female genitourinary complaints Musculoskeletal: Reports no additional musculoskeletal complaints Skin/Breast: Reports system reviewed and no additional complaints, except as docu Psychiatric: Reports no additional psychiatric complaints Endocrine: Reports no additional endocrine complaints Hematologic/Lymphatic: Reports no additional hematologic/lymphatic complaints Allergic/Immunologic: Reports no additional allergic/immunologic complaints Reports system reviewed and no additional complaints, except as documented and Reports Abnormal speech present FORMERLY [facility] Past Medical History Medical History Allergic rhinitis due to allergen Obese Hypothyroidism Insomnia Dyslipidemia Essential hypertension Surgical History History of open reduction and internal fixation (ORIF) procedure Family History Family History Mother Diabetes mellitus Father Hypertension Mental health disorder Social History Social History Housing: Apartment Alcohol intake: current Alcohol intake frequency: holidays/special occasions only Alcohol type: beer Patient Tobacco Use Status: Never used Tobacco e-Cigarette/Vaping Use: Never Used Second Hand Smoke Exposure: No Advance Directives Date on File: 10/23/22 service: No Current occupational status: disabled Cognitive needs: Yes (cane) Hearing needs: No Vision needs: No Physical Exam ED Vital Signs: Vital Signs - 24 hr 08/20/24 08:34 Temperature 97.9 F Pulse Rate 66 Respiratory Rate 16 Blood Pressure 145/91 H Pulse Oximetry 100 Oxygen Delivery Method Room Air BMI result Body Mass Index 33.6 Vital signs have been reviewed and appear to be correct. Blood pressure elevated. Heart rate normal. Respiratory rate normal. Temperature normal. Oxygen saturation normal. Appearance: Alert. Oriented X3. No acute distress. Head: Normal external exam. Normocephalic. Atraumatic. No Henry signs noted. No raccoon eyes noted Eyes: PERRLA. EOMI. Conjunctiva and sclera normal. Eyelids normal. ENT: TM's Normal. Pharynx normal. Uvula midline. Moist mucous membranes. No trismus noted. No drooling noted. No muffled voice noted. Neck: Normal inspection. Neck supple. FROM. No adenopathy. Thyroid Normal. No meningeal signs. No neck mass noted. CVS: Normal heart rate and rhythm. Heart sound normal. No murmurs noted. Pulses normal throughout. Respiratory: No respiratory distress. Painless inspiration. Breath sounds normal. No wheezes/rales/rhonchi noted. Chest nontender. No accessory muscle usage noted or decreased air movement noted. Abdomen: Soft and nontender. Bowel sounds normal in all 4 quadrants. No distention noted. No organomegaly noted. No visible injury noted. Back: No CVA tenderness. Full range of motion noted. Skin: Skin warm and dry. Normal skin color. Normal skin turgor. No rashes/lesions/lacerations noted. Extremities: No lower extremity edema. Extremities exhibit normal range of motion. Extremities nontender. Neuro: Oriented X 3. Cranial nerve exam: II-XII are grossly intact No motor deficit. No sensory deficit. Reflexes normal. Course Reevaluation(s) Reevaluation #1: Feels better after prednisone/Benadryl/Pepcid no more itching. Patent airway with no swelling of upper airway or stridor. Discharge on 5 days' course of prednisone. Time: 10:00 Medical Decision Making Differential Diagnosis Differential Diagnoses: The differential diagnosis associated with the presentation includes (Allergic reaction, upper airway compromise, voice change.) Admission/Observation Consideration of admission/observation: Escalation of care including admission/observation considered Discharge Plan Discharge Clinical Impression: Pruritus Patient Disposition: Home, Self-Care Instructions: Itchy Skin (ED) Prescriptions: New prednisone 20 mg tablet 20 mg PO BID Qty: 10 0RF cetirizine 10 mg tablet 10 mg PO DAILY PRN (Reason: allergy symptoms) Qty: 20 0RF No Action (DME) blood pressure monitor Kit See Rx Instructions .Route Qty: 1 0RF Rx Instructions: As directed (DME) underpads [Bed Underpads] Pad See Rx Instructions .Route Qty: 100 6RF Rx Instructions: Use 2 to 4 bed underpads once a day lisinopril 40 mg tablet 40 mg PO DAILY 90 Days Qty: 90 1RF cetirizine 10 mg tablet 10 mg PO DAILY PRN (Reason: allergy symptoms) 90 Days Qty: 90 0RF ammonium lactate 12 % cream 1 appl topical BID PRN (Reason: dry skin) 90 Days Qty: 385 1RF triamcinolone acetonide 0.5 % ointment 1 appl topical DAILY PRN (Reason: rash) Qty: 15 0RF amlodipine 2.5 mg tablet 2.5 mg PO DAILY 90 Days Qty: 90 1RF hydrochlorothiazide 25 mg tablet 25 mg PO DAILY 90 Days Qty: 90 1RF levothyroxine 175 mcg tablet 175 mcg PO DAILY 90 Days Qty: 90 1RF cholecalciferol (vitamin D3) 25 mcg (1,000 unit) capsule 25 mcg PO DAILY 90 Days Qty: 90 3RF trazodone 50 mg tablet 50 mg PO BEDTIME PRN (Reason: sleep) 30 Days Qty: 30 1RF hydrocortisone 1 % cream 1 appl topical TID PRN (Reason: rash) Qty: 28.35 0RF acetaminophen 500 mg tablet 1,000 mg PO Q6H PRN (Reason: fever or pain) 30 Days Qty: 120 1RF atorvastatin 20 mg tablet 20 mg PO QPM 90 Days Qty: 90 3RF (DME) walker Misc See Rx Instructions .Route Qty: 1 0RF Rx Instructions: as directed (DME) Grab bar Misc See Rx Instructions .Route Qty: 1 0RF Rx Instructions: As directed (DME) handheld shower head See Rx Instructions .Route .MEDSUPPLY Qty: 1 0RF Rx Instructions: As directed (DME) raised toilet seat See Rx Instructions .Route .MEDSUPPLY Qty: 1 0RF Rx Instructions: As directed (DME) underpads [Bed Underpads] Pad See Rx Instructions .Route Qty: 100 6RF Rx Instructions: Use 2 pads once a day (DME) personal wipes See Rx Instructions .Route .MEDSUPPLY Qty: 600 11RF Rx Instructions: Use 20 per day as needed (DME) disposable gloves Misc See Rx Instructions .Route Qty: 200 11RF Rx Instructions: Use 10 per day as needed ibuprofen 600 mg tablet 600 mg PO Q6H PRN (Reason: fever or pain) Qty: 30 0RF fluoxetine 10 mg tablet 10 mg PO DAILY 90 Days Qty: 90 0RF Referrals: Melissa Nixon MD [Primary Care Provider] - Print Language: Burundian
[2024-08-20] MEDS: Famotidine 20 MG TABLET PO (08:51)
[2024-08-20] MEDS: predniSONE 20 MG TABLET 60 MG PO (08:51)
[2024-08-20] MEDS: diphenhydrAMINE HCL 25 MG CAPSULE 50 MG PO (08:51)
[2024-08-20 09:35] VITALS: BP 137/85; PULSE 64; RESP 18; TEMP 36.7; O2SAT 100
== END 2024-08-20 09:39 | disposition home or self-care (01) ==
PROVIDERS: Emergency Provider Emergency Medicine; PCP Internal Medicine
DX: L29.9 Pruritus, unspecified (principal); Z79.899 Other long term (current) drug therapy
CPT/HCPCS: 99283

== ENCOUNTER 2024-10-12 17:10 | Outpatient (AMB) | payer OTHER, SELFPAY ==
[2024-10-12 17:12] VITALS: BP 132/86; PULSE 66; O2SAT 97; BMI 33.3
--- NOTE | 2024-10-12 17:12 | A.OFFPC_ITS ---
Vital Signs 10/12/24 17:12 Height 5 ft 6 in Weight 206 lb 6 oz BMI 33.3 BP 132/86 Blood Pressure Location Lt brachial Position Sitting Pulse 66 Pulse Source Pulse Oximeter Pulse Oximetry (%) 97 Oxygen Delivery Method Room Air Intake Visit Reasons: 6 month f/u Manager Advertising Required: Yes Manager Advertising Language: Machinist Outside Name: Melissa Mcrae MD Information Interpreted: non-clinical & clinical Accompanied by: niece Allergies No Known Allergies [No Known Allergies*] Allergy (Verified 10/12/24 17:20) Medication List - Last Reconciled 10/12/24 by Melissa Mcrae MD acetaminophen 1,000 mg (2 x 500 mg) PO Q6H PRN 30 days amlodipine 2.5 mg PO DAILY 90 days ammonium lactate 12% 1 appl topical BID PRN 90 days atorvastatin 20 mg PO QPM 90 days blood pressure monitor As directed cetirizine 10 mg PO DAILY PRN cetirizine 10 mg PO DAILY PRN 90 days cholecalciferol (vitamin D3) 25 mcg PO DAILY 90 days disposable gloves Use 10 per day as needed fluoxetine 10 mg PO DAILY 90 days Grab bar As directed [handheld shower head As directed] hydrochlorothiazide 25 mg PO DAILY 90 days hydrocortisone 1% 1 appl topical TID PRN ibuprofen 600 mg PO Q6H PRN levothyroxine 175 mcg PO DAILY 90 days lisinopril 40 mg PO DAILY 90 days [personal wipes Use 20 per day as needed] prednisone 20 mg PO BID [raised toilet seat As directed] trazodone 50 mg PO BEDTIME PRN 30 days triamcinolone acetonide 0.5% 1 appl topical DAILY PRN underpads (Bed Underpads) Use 2 pads once a day underpads (Bed Underpads) Use 2 to 4 bed underpads once a day walker as directed Tobacco use date assessed: 10/12/24 Fall risk assessment: No Falls in past year Last assessed Fall Risk: 10/12/24 Dental Screening Dental Screen Date: 10/12/24 Did you have a dental visit in the last 12 months?: No Did you have a dental problem in the last 6 months where you did not have access to dental care?: No Was dental information given to patient?: No HPI HPI Comments History of Present Illness Details - The patient is a 64-year-old male pres enting with follow-up needs for his chronic health conditions, including hypothyroidism, hypertension, hyperlipidemia, depressive disorder, and pruritus. He has been managing hypothyroidism with levothyroxine 175 mcg but recent lab work indicated a mildly low thyroid-stimulating hormone (TSH) level at 0.25 (previously expected to be around 0.32). Essential hypertension is managed with multiple medications, including amlodipine, lisinopril, and hydrochlorothiazide. Hyperlipidemia is treated with atorvastatin. The patient reports using vitamin D and cetirizine for allergic rhinitis management. He is prescribed fluoxetine 10 mg for depression, though it appears he did not have it available recently. Insomnia is managed with trazodone. There are intermittent complaints of pruritus in the hands and feet, persisting for approximately six months, which recurs after prednisone and Benadryl use. The itch did not resolve with prior treatment, and it seems possible that an allergy to medication contributes to the issue. There is also a concern regarding progressive cognitive decline, with forgetfulness and suspected memory issues. The last colonoscopy recommended appointments have been delayed despite initial scheduling efforts. Will be referred to Neurology for cognitive impairment. He also has family history of Alzheimer's disease. [facility] Medical History (Updated 10/12/24 @ 17:31 by Melissa Mcrae MD) Allergic rhinitis due to allergen Obese Hypothyroidism Insomnia Dyslipidemia Essential hypertension Surgical History History of open reduction and internal fixation (ORIF) procedure Family History Mother Diabetes mellitus Father Hypertension Mental health disorder Social History Housing: Apartment Alcohol intake: current Alcohol intake frequency: holidays/special occasions only Alcohol type: beer Patient Tobacco Use Status: Never used Tobacco e-Cigarette/Vaping Use: Never Used Second Hand Smoke Exposure: No Advance Directives Date on File: 10/23/22 service: No Current occupational status: disabled Cognitive needs: Yes (cane) Hearing needs: No Vision needs: No Questionnaire PHQ-9 Over the last 2 weeks, how often have you been bothered by any of the following problems? 1. Little interest or pleasure in doing things: not at all 2. Feeling down, depressed, or hopeless: nearly every day 3. Trouble falling or staying asleep, or sleeping too much: nearly every day 4. Feeling tired or having little energy: more than half the days 5. Poor appetite or overeating: nearly every day 6. Feeling bad about yourself - or that you are a failure or have let yourself or your family down: not at all 7. Trouble concentrating on things, such as reading the newspaper or watching television: not at all 8. Moving or speaking so slowly that other people could have noticed. Or the opposite - being so fidgety or restless that you have been moving around a lot more than usual: nearly every day 9. Thoughts that you would be better off or of hurting yourself in some way: not at all Total score: 14 Depression Screening Interpretation: Positive (no suicidal thoughts) Depression Screening Follow-up: Existing condition, New Medication prescribed and Follow-up Visit Requested Depression Screening Done: Yes 33592 - PHQ-9 Billing: Yes Source: Developed by Drs. Maximilian Mendieta, Cuca Harper, Roscoe Rodriguez and colleagues, with an educational linette from [employer]. Thrive Questionnaire Date Thrive assessed: 10/12/24 I am a: Patient What is your living situation today?: I have a steady place to live Within the past 12 months, did the food you bought not last and you didn't have the money to get more?: Never true Within the past 12 months, did you worry whether your food would run out before you got money to buy more?: Never true Do you have trouble paying for medicines?: No Do you have trouble getting transportation to medical appointments?: No Do you have trouble paying your heating and electricity bill?: No Do you have trouble taking care of your child, family member or friend?: No Do you have trouble with day-to-day activities such as bathing, preparing meals, shopping, managing finances, etc.?: No Are you currently unemployed and looking for a job?: No Are you interested in more education?: No Please select the resources that you would like help with: None Currently or been in a relationship where the following occur: No concerns reported THRIVE Score: 0 AUDIT C Alcohol Use Questionnaire (AUDIT-C) 1. How often do you have a drink containing alcohol?: Monthly or less 2. How many drinks containing alcohol do you have on a typical day when you are drinking?: 1 or 2 3. How often do you have six or more drinks on one occasion?: Never Total Score: 1 Score Reviewed/Action Taken: No CASA-7 AMB Questionnaire CASA-7 Date CASA - 7 assessed: 10/12/24 Feeling nervous, anxious, or on edge: 3 = Nearly every day Not being able to stop or control worryin = Not at all Worrying too much about different things: 2 = More than half the days Trouble relaxin = Several days Being so restless that it is hard to sit still: 1 = Several days Becoming easily annoyed or irritable: 1 = Several days Feeling afraid as if something awful might happen: 2 = More than half the days Total CASA-7 score (0-4 normal; 5-9 mild; 10-14 moderate; 15-21 severe): 10 Source: Developed by Drs. Maximilian Mendieta, Cuca Harper, Roscoe Rodriguez and colleagues, with an educational linette from [employer]. CASA-7 Assessment Billing CASA-7 Assessment Tool: CASA-7 Assessment 31887 Review of Systems Const All systems reviewed & are unremarkable except as noted in HPI and below Card Denies chest pain at rest, Denies chest pain with activity, Denies edema, Denies irregular heart rhythm, Denies claudication, Denies dyspnea, Denies dyspnea on exertion, Denies orthopnea, Denies paroxysmal nocturnal dyspnea and Denies slow heart rate Resp Denies cough, Denies dyspnea and Denies dyspnea on exertion GI Denies abdominal pain, Denies change in bowel habits, Denies excessive flatus, D enies nausea and Denies vomiting Denies urinary hesitancy, Denies urinary incontinence and Denies urinary urgency Neuro Denies behavioral changes and Denies lack of coordination Psych Denies behavioral changes Physical exam (Primary Care) Vital Signs: Last Vital Signs Pulse 66 10/12/24 17:12 BP 132/86 10/12/24 17:12 Pulse Ox 97 10/12/24 17:12 Oxygen Delivery Method Room Air 10/12/24 17:12 BMI result Body Mass Index 33.3 Tobacco/Smoking Status: Tobacco use Status Tobacco use date assessed 10/12/24 10/12/24 17:17 Patient Tobacco Use Status Never used Tobacco 10/12/24 17:17 e-Cigarette/Vaping Use Never Used 10/12/24 17:17 PHQ-9: PHQ-9 Score PHQ-9: Total score 14 10/12/24 17:23 Depression Screening Interpretation: Positive (no suicidal thoughts) Depression Screening Follow-up: Existing condition, New Medication prescribed and Follow-up Visit Requested Thrive Assessment: Date of Thrive Assessment Date Thrive assessed 10/12/24 10/12/24 17:17 Currently or been in a relationship where the following occur: No concerns reported Resp Effort & Inspection: normal respiratory effort Auscultation: clear to auscultation bilaterally Cardio Jugular venous distension: no JVD Rate: regular rate Rhythm: regular rhythm Heart sounds: S1 normal heart sound present and S2 normal heart sound present Extrem General: Yes full ROM Coding Level of Care Code Est Pt Level 4 (68982) Complex EM visit Add On G2211 Diagnoses Mild major depression F32.0 Cognitive impairment R41.89 Pruritus L29.9 Acquired hypothyroidism E03.9 Hypothyroidism type: acquired Essential hypertension I10 Dyslipidemia E78.5 Additional Codes CASA-7 Assessment Billing - CASA-7 Assessment Tool: CASA-7 Assessment 91078 ([id number]) PHQ-9 - 25537 - PHQ-9 Billing: Yes ([id number]) Time Spent (min) 24 Assessment & Plan Assessment & Plan (1) Mild major depression: Code(s): F32.0 - Major depressive disorder, single episode, mild Category: Medical (2) Cognitive impairment: Code(s): R41.89 - Other symptoms and signs involving cognitive functions and awareness Category: Medical (3) Pruritus: Code(s): L29.9 - Pruritus, unspecified Category: Medical (4) Hypothyroidism: Code(s): E03.9 - Hypothyroidism, unspecified Category: Medical Qualifiers: Hypothyroidism type: acquired Qualified Code(s): E03.9 - Hypothyroidism, unspecified (5) Essential hypertension: Code(s): I10 - Essential (primary) hypertension Category: Medical (6) Dyslipidemia: Code(s): E78.5 - Hyperlipidemia, unspecified Category: Medical Plan - Order cognitive assessment with neurology for further evaluation of memory concerns: - Reschedule the missed colonoscopy; ensure completion of preventive screenings. - Advise continuation of current antihypertensives and statin regimen. Patient was informed and verbally consented to the use of an ambient scribe for clinic note documentation during this visit. During our consultation, I focused on addressing Mr. Schwartz's chronic conditions, highlighting his hypothyroidism, hypertension, hyperlipidemia, depression, and issues with pruritus and memory. I discussed the importance of the scheduled lab work to track thyroid levels accurately and adjust treatment if necessary. I emphasized restarting fluoxetine and how it might improve his depressive symptoms. Given the persistence of his itch, a referral to an boat tester was arranged to rule out potential medication allergies. I explained the resolution paths for the postponed colonoscopy to ensure no lapses in preventative care. Lastly, I outlined the significance of having a neurological evaluation to understand the scope of his cognitive symptoms, aligning with his niece's observations about forgetfulness. Orders: Orders Comprehensive [place]. Panel Fast 8 Months R41.89 - Other symptoms and signs involving cognitive functions and awareness Lipid Panel 8 Months E78.5 - Hyperlipidemia, unspecified Thyroid Stimulating Hormone Today L29.9 - Pruritus, unspecified Referrals Neurology Referral R41.89 - Other symptoms and signs involving cognitive functions and awareness Allergy & Immunology Referral L29.9 - Pruritus, unspecified Open Access Screening Colonoscopy Referral Z12.12 - Encounter for screening for malignant neoplasm of rectum Medications: Changed From cetirizine 10 mg PO DAILY PRN 20 tabs 0RF allergy symptoms To cetirizine 10 mg PO DAILY PRN 90 tabs 1RF allergy symptoms 90 days Refilled fluoxetine 10 mg PO DAILY 90 tabs 0RF 90 days F32.0 - Major depressive disorder, single episode, mild Patient Instructions: - Continue all current prescribed medications. - Schedule and complete repeat thyroid function tests as directed. - Fill and begin taking fluoxetine for depression. - Attend curatorial specialist appointment without antihistamines for 7 days prior. - Complete neurology referral for cognitive assessment. - Attempt colonoscopy appointment rescheduling promptly. - Follow dietary and lifestyle recommendations for blood pressure and lipid management. - Report any new or worsening symptoms promptly.
== END 2024-10-12 17:30 | disposition home or self-care (01) ==
PROVIDERS: PCP Internal Medicine; Visit Provider Internal Medicine
DX: F32.0 Major depressive disorder, single episode, mild (principal); R41.89 Other symptoms and signs involving cognitive functions and awareness; L29.9 Pruritus, unspecified; E03.9 Hypothyroidism, unspecified; I10 Essential (primary) hypertension; E78.5 Hyperlipidemia, unspecified

== ENCOUNTER → 2024-10-12 17:10 | Outpatient (BNVA) | payer OTHER, SELFPAY | PROVIDERS: PCP Internal Medicine; Visit Provider Internal Medicine | DX: F32.0 Major depressive disorder, single episode, mild (principal); R41.89 Other symptoms and signs involving cognitive functions and awareness; L29.9 Pruritus, unspecified; E03.9 Hypothyroidism, unspecified; E78.5 Hyperlipidemia, unspecified; I10 Essential (primary) hypertension | CPT/HCPCS: 96127; 99212 ==

== ENCOUNTER 2024-10-19 09:43 | Outpatient (REF) | payer OTHER, SELFPAY ==
--- OUTSIDE RECORDS SUMMARY | 2024-10-19 11:10 | XMS_ITS | Encounter Summary ---
Author Organization [facility] Address [address] [place] [address] Care Team Providers Care Woods Rider Name Role Phone Unavailable Primary Care Provider Unavailabl e Encounter Details Date Type Department Care Team (Latest Contact Info) Description 09/09/2018 Abstract [facility] CONVERSIONS Dental, Provider, DDS Social History Tobacco Use Types Packs/Day Years Used Date Smoking Tobacco: Never Assessed Sex and Gender Information Value Date Recorded Sex Assigned at Male 06/22/2022 10:15 AM EDT Legal Sex Male 10:15 AM EDT Gender Identity Choose not to disclose 10:15 AM EDT Sexual Orientation Choose not to disclose 2021 10:15 AM EDT documented as of this encounter Plan of Treatment Not on file documented as of this encounter Visit Diagnoses Not on filedocumented in this encounter
--- OUTSIDE RECORDS SUMMARY | 2024-10-19 11:10 | XMS_ITS | Encounter Summary ---
Author Organization [facility] Address [address] [facility] [address] [place] [address] Care Team Providers Care Mfts Name Role Phone Unavailable Primary Care Provider Unavailabl e Encounter Details Date Type Department Care Team (Latest Contact Info) Description 10/02/2019 Abstract [facility] Dental, Provider, DDS Social History Tobacco Use Types Packs/Day Years Used Date Smoking Tobacco: Never Assessed Sex and Gender Information Value Date Recorded Sex Assigned at Male 06/22/2022 10:15 AM EDT Legal Sex Male 10:15 AM EDT Gender Identity Choose not to disclose 2 10:15 AM EDT Sexual Orientation Choose not to disclose 2021 10:15 AM EDT documented as of this encounter Plan of Treatment Not on file documented as of this encounter Visit Diagnoses Not on filedocumented in this encounter
--- OUTSIDE RECORDS SUMMARY | 2024-10-19 11:10 | XMS_ITS | Clinical Summary ---
Author Organization [employer] Address [address] [facility] [address] [place] [address] Care Team Providers Care Layout Artist Name Role Phone Unavailable Primary Care Provider Unavailabl e Immunizations Name Administration Dates Next Due Hep B, adult 06/18/2016,02/07/2016,10/23/2015 Influenza injectable quadriv alent IIV4 with preservative 04/18/2019,06/22/2018,07/21/2017 Influenza injectable quadriv alent preservative free 06/11/2023,09/03/2022 Influenza, IIV3, injectable 05/03/2014 Influenza, Split (incl. james fied surface antigen) 05/16/2013 Influenza, seasonal, injecta ble, preservative free 04/25/2016,04/12/2015 Moderna Covid-19 Vaccine 6+ Bivalent 08/05/2022 Pfizer Covid-19 Vaccine 12+ 06/11/2023 TD (adult), 2 Lf tetanus tox oid, preservative free, adsorbed 05/14/2008 Td (adult), 5 Lf tetanus tox oid, preservative free, adsorbed 04/04/2012 Tdap 04/27/2023,05/16/2013 Zoster, Recombinant 02/15/2018 Zoster, live 12/12/2017 Social History Tobacco Use Types Packs/Day Years Used Date Smoking Tobacco: Never Assessed Sex and Gender Information Value Date Recorded Sex Assigned at Male 06/22/2022 10:15 AM EDT Legal Sex Male 10:15 AM EDT Gender Identity Choose not to disclose 2 10:15 AM EDT Sexual Orientation Choose not to disclose 2021 10:15 AM EDT Last Filed Vital Signs Vital Sign Reading Time Taken Comments Blood Pressure 150/90 08/24/2019 12:01 AM EST Pulse 72 08/24/2019 12:01 AM EST Temperature - - Respiratory Rate - - Oxygen Saturation - - Inhaled Oxygen Concentration - - Weight 104 kg (228 lb 9.6 oz) 08/24/2019 12:01 A M EST Height 168.9 cm (5' 6.5 ) 08/24/2019 12:01 AM ES T Body Mass Index 36.34 08/24/2019 12:01 AM EST Plan of Treatment Health Maintenance Due Date Last Done Comments CT Colonography 1960 Colonoscopy 1960 Colorectal Cancer Screening 1960 Depression Screening 1960 FIT DNA/Cologuard 1960 FIT 1960 FOBT 1960 HIV Screening 1960 Lipid Panel 1960 SDOH Screening 1960 Sigmoidoscopy 1960 Alcohol/Substance Use Screening 1972 Tobacco Screening 1972 Hepatitis C Screening 1978 Pneumococcal Vaccine: 50+ Years (1 of 1 - PCV) 2010 Zoster Vaccines (3 of 3) 04/12/2018 02/15/2018, 11/22 COVID-19 Vaccine ( season) 2024 06/11/2023, 08/05/2022, 08/12/2021, Additional history exists Influenza Vaccine (#1) 2024 , 09/03/2022, 04/18/2019, Additional history exists DTaP/Tdap/Td Vaccines (3 - Td or Tdap) 04/27/2033 04/27/2023, 05/16/2013, 04/04/2012, Additional history exists RSV Patients and Patients Aged 60 years or older (1 - 1-dose 75+ series) 2035 Hepatitis B Vaccines Completed 06/18/2016, 02/07/2016, 10/23/2015 HIB Vaccines Aged Out No longer eligi ble based on patient's age to complete this topic HPV Vaccines Aged Out No longer eligi ble based on patient's age to complete this topic Hepatitis A Vaccines Aged Out No long er eligible based on patient's age to complete this topic IPV Vaccines Aged Out No longer eligi ble based on patient's age to complete this topic Meningococcal Vaccine Aged Out No tanner ella eligible based on patient's age to complete this topic RSV under 20 months Aged Out No longe r eligible based on patient's age to complete this topic Rotavirus Vaccines Aged Out No longer eligible based on patient's age to complete this topic Insurance [facility]
[2024-10-19 11:16] LABS: Thyroid Stimulating Hormone 0.52 uIU/mL (0.32-4.0)
== END 2024-10-19 09:44 | disposition home or self-care (01) ==
LOC: HO.LAB 09:43
PROVIDERS: PCP Internal Medicine; Visit Provider Internal Medicine
DX: E03.9 Hypothyroidism, unspecified (principal)
CPT/HCPCS: 36415; 84443

== ENCOUNTER 2025-03-15 08:21 | Outpatient (REF) | payer OTHER, SELFPAY ==
[2025-03-15 13:17] LABS: MANUAL DIFF FLAG NO
[2025-03-15 13:29] LABS: Hematocrit 41.7 % (42.0-52.0); Hemoglobin 13.9 g/dl (14.0-18.0); Imm Gran Abs Auto 0.02 X10*3/uL (0.00-0.03); Imm Gran Pct Auto 0.3 % (0.0-0.4); Lymphocytes Absolute Auto 1.9 X10*3/uL (1.2-4.9); Mean Corpuscular HGB Conc 33.3 g/dl (31.0-36.0); Mean Corpuscular Hemoglobin 30.2 pg (27.0-33.0); Mean Corpuscular Volume 90.7 fL (80.0-98.0); NRBC Abs Auto 0.000 X10*3/uL (0.0-0.012); NRBC Pct Auto 0.0 /100WBC (0.0-0.2); Platelet Count 164 X10*3/uL (160-400); Red Blood Count 4.60 X10*6/uL (4.60-5.80); White Blood Count 6.9 X10*3/uL (4.8-10.8)
[2025-03-15 13:45] LABS: Alanine Aminotransferase 27 U/L (0-40); Albumin Level 4.4 g/dL (3.5-5.0); Alkaline Phosphatase 79 U/L (39-117); Anion Gap 10 (12-20); Aspartate Amino Transferase 28 U/L (5-37); Blood Urea Nitrogen 14 mg/dL (9-16); Calcium 9.3 mg/dL (8.4-10.2); Carbon Dioxide 28 mmol/L (22-29); Chloride 106 mmol/L (96-108); Estimated Glomerular Filt Rate > 60; Potassium 4.3 mmol/L (3.3-5.1); Sodium 140 mmol/L (135-145); Total Protein 6.8 g/dL (6.5-8.0)
[2025-03-15 14:15] LABS: Folate 12.0 ng/mL (> or = 4.0); Vitamin B12 405 pg/mL (200-900)
[2025-03-19 15:53] LABS: Vitamin D 25-OH, D2 <4 ng/mL; Vitamin D 25-OH, D3 40 ng/mL; Vitamin D 25-OH, Total 40 ng/mL (30-100)
== END 2025-03-15 08:22 | disposition home or self-care (01) ==
LOC: HO.HKASLDS 08:21
PROVIDERS: PCP Internal Medicine; Visit Provider Psychiatry & Neurology Neurology
DX: R41.89 Other symptoms and signs involving cognitive functions and awareness (principal); F51.01 Primary insomnia; F32.0 Major depressive disorder, single episode, mild; E03.9 Hypothyroidism, unspecified; I10 Essential (primary) hypertension; E78.5 Hyperlipidemia, unspecified; F41.0 Panic disorder [episodic paroxysmal anxiety]; F41.8 Other specified anxiety disorders; G47.10 Hypersomnia, unspecified; R06.83 Snoring; Z79.899 Other long term (current) drug therapy
CPT/HCPCS: 36415; 80053; 82306; 82607; 82746; 85025; 85652; 99202

== ENCOUNTER 2025-03-15 08:21 | Outpatient (AMB) | payer OTHER, SELFPAY ==
[2025-03-15 08:26] VITALS: BP 180/100; PULSE 54; O2SAT 97; BMI 37.3
--- NOTE | 2025-03-15 08:26 | A.OFFVIS_ITS ---
Vital Signs 03/15/25 08:26 Height 5 ft 6 in Weight 231 lb BMI 37.3 BP 180/100 H Blood Pressure Location Rt brachial Position Sitting Pulse 54 Pulse Source Pulse Oximeter Pulse Oximetry (%) 97 Oxygen Delivery Method Room Air Intake Visit Reasons: INP-Other sym involving cog [employer] Required: Yes Super[employer] Name: Milo Accompanied by: Self / Same As Patient Allergies No Known Allergies (No Known Allergies*) Allergy (Verified 03/15/25 08:29) Medication List - Last Reconciled 03/15/25 by Virginia John MD acetaminophen 1,000 mg (2 x 500 mg) PO Q6H PRN 30 days amlodipine 2.5 mg PO DAILY 90 days ammonium lactate 12% 1 appl topical BID PRN 90 days atorvastatin 20 mg PO QPM 90 days blood pressure monitor As directed cetirizine 10 mg PO DAILY PRN 90 days cetirizine 10 mg PO DAILY PRN 90 days cholecalciferol (vitamin D3) 25 mcg PO DAILY 90 days disposable gloves Use 10 per day as needed fluoxetine 10 mg PO DAILY 90 days Grab bar As directed [handheld shower head As directed] hydrochlorothiazide 25 mg PO DAILY 90 days hydrocortisone 1% 1 appl topical TID PRN ibuprofen 600 mg PO Q6H PRN levothyroxine 175 mcg PO DAILY 90 days lisinopril 40 mg PO DAILY 90 days [personal wipes Use 20 per day as needed] prednisone 20 mg PO BID [raised toilet seat As directed] trazodone 50 mg PO BEDTIME PRN triamcinolone acetonide 0.5% 1 appl topical DAILY PRN underpads (Bed Underpads) Use 2 pads once a day underpads (Bed Underpads) Use 2 to 4 bed underpads once a day walker as directed HPI Comments Details: 64y/o male comes for cognitive evaluation . He is accompanied by his niece who helps with history . His family is concerned as his father and grandfather had dementia. His family noticed that he was repeating and forgetting conversations about 1 year ago . He frequently forgets his appointment , difficulty with short term recall. He is legally blind and does not drive. He frequently misplaces things in the house. 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 He has depression , anxiety - fairly controlled. He gets panic attacks at night He takes trazadone for sleep. [facility] Medical History Allergic rhinitis due to allergen Obese Hypothyroidism Insomnia Dyslipidemia Essential hypertension Surgical History History of open reduction and internal fixation (ORIF) procedure Family History Mother Diabetes mellitus Father Hypertension Mental health disorder Social History Housing: Apartment Alcohol intake: current Alcohol intake frequency: holidays/special occasions only Alcohol type: beer Patient Tobacco Use Status: Never used Tobacco e-Cigarette/Vaping Use: Never Used Second Hand Smoke Exposure: No Advance Directives Date on File: 10/23/22 service: No Current occupational status: disabled Cognitive needs: Yes (cane) Hearing needs: No Vision needs: No Physical Exam Vital Signs: Last Vital Signs Pulse 54 03/15/25 08:26 BP 180/100 H 03/15/25 08:26 Pulse Ox 97 03/15/25 08:26 Oxygen Delivery Method Room Air 03/15/25 08:26 BMI result Body Mass Index 37.3 Const General: cooperative, healthy appearing, comfortable and no acute distress Orientation/consciousness: patient oriented x3 Eyes Pupils: Equal, round and reactive pupils present Neuro Other: MMSE 20/22 - some test could not be performed due to his blindness and education level.( 3rd grade) General: patient oriented x3, gait normal, tone normal, moves all extremities and no focal motor deficits Cranial nerves: Yes Equal, round and reactive pupils present, Yes Bilaterally intact EOM present, Yes Nystagmus not present, Yes Normal facial strength present, Yes Midline tongue present, Yes Symmetric palate elevation present, Yes Ability to bilaterally rotate head present and Yes Ability to bilaterally elevate shoulders present Cognition (Neuro): normal cognition Gait exam (Neuro): Normal gait present Motor exam (neuro): 5/5 motor strength present throughout and Normal motor muscle tone present throughout Deep tendon reflexes (DTR's): Right triceps reflex intensity grade: 1+, Left triceps reflex intensity grade: 1+, Rt Biceps (C5, C6): 1+, Left biceps reflex intensity grade: 1+, Right brachioradialis reflex intensity grade: 1+, Left brachioradialis reflex intensity grade: 1+, Right patellar reflex intensity grade: 1+ and Left patellar reflex intensity grade: 1+ Coordination: [id number] test normal Orientation What is the (year) (season) (date) (day) (month)?: season, date, day and month Where are we (state) (county) (town or city) (hospital) (floor)?: state, town or city, hospital/clinic and floor Registration Name of 3 unrelated objects clearly and slowly, then ask patient to repeat all 3 of them. (1st repeat determines score. Make sure they can repeat all three): object 1, object 2 and object 3 Recall Ask patient to repeat the 3 items from question #3.: object 1, object 2 and object 3 Language Show patient a wristwatch & ask what it is. Repeat for pencil.: watch and pencil Ask the patient to repeat the phrase 'No ifs, ands, or buts' after you.: correct Ask the patient to 'take a piece of paper with their right hand' 'fold paper in half' 'place paper on floor': take paper in right hand, fold paper in half and place paper on floor Score Score: 20 Assessment & Plan Assessment & Plan (1) Cognitive impairment: Code(s): R41.89 - Other symptoms and signs involving cognitive functions and awareness Category: Medical (2) Insomnia: Code(s): G47.00 - Insomnia, unspecified Category: Medical Qualifiers: Insomnia type: primary Qualified Code(s): F51.01 - Primary insomnia (3) Snoring: Code(s): R06.83 - Snoring Category: Medical Plan MRI Brain Labs- Vit B 12 TSH ESR CBC CMP SLeep study to r/o sleep apnea I will start him on citalopram 10mg qd for depression which is likely contributing to his cognitive decline Orders: Orders RT PSG in-lab sleep study Today F51.01 - Primary insomnia, G47.10 - Hypersomnia, unspecified, R06.83 - Snoring MR head/brain wo con Today R41.89 - Other symptoms and signs involving cognitive functions and awareness Vitamin B12 and Folate Today R41.89 - Other symptoms and signs involving cognitive functions and awareness Comprehensive Met. Panel Today R41.89 - Other symptoms and signs involving cognitive functions and awareness Vitamin D 25-OH (D2 and D3) Today R41.89 - Other symptoms and signs involving cognitive functions and awareness Complete Blood Count Auto Diff Today R41.89 - Other symptoms and signs involving cognitive functions and awareness Erythrocyte Sedimentation Rate Today R41.89 - Other symptoms and signs involving cognitive functions and awareness Medications: New citalopram 10 mg PO DAILY 30 tabs 6RF Discontinued fluoxetine Discontinued Reason: Doctor's Order 10 mg PO DAILY 90 days 90 tabs 0RF F32.0 - Major depressive disorder, single episode, mild Coding Level of Care Code New Pt Level 4 (44707) Complex EM visit Add On G2211 Diagnoses Cognitive impairment R41.89 Primary insomnia F51.01 Insomnia type: primary Snoring R06.83
--- OUTSIDE RECORDS SUMMARY | 2025-03-15 08:38 | XMS_ITS | Clinical Summary ---
Author Organization [employer] Address [address] [facility] [address] [place] [address] Care Team Providers Care Associate Professor Of History Name Role Phone Unavailable Primary Care Provider Unavailabl e Immunizations Immunization Administration Dates Next Due Hep B, adult [...] Panel 1960 SDOH Screening 1960 Sigmoidoscopy 1960 Disability Screening 1960 Alcohol/Substance Use Screening 1972 Tobacco Screening 1972 Hepatitis C Screening 1978 Pneumococcal Vaccine: 50+ Years (1 of 1 - PCV) 2010 Zoster Vaccines (3 of 3) 04/12/2018 02/15/2018, 11/22 COVID-19 Vaccine ( season) 2024 06/11/2023, 08/05/2022, 08/12/2021, Additional history exists Influenza Vaccine (#1) 2025 , 09/03/2022, 04/18/2019, Additional history exists DTaP/Tdap/Td [...] patient's age to complete this topic Meningococcal B Vaccine Aged Out No l onger eligible based on patient's age to complete this topic Meningococcal Vaccine Aged Out No tanner ella eligible based on patient's age to complete this topic RSV under 20 months Aged Out No longe r eligible based on patient's age to complete this topic Rotavirus Vaccines Aged Out No longer eligible based on patient's age to complete this topic Insurance [facility] CARE < [address] [place] [id number]
== END 2025-03-15 09:05 | disposition home or self-care (01) ==
LOC: HO.HSMS 08:22
PROVIDERS: PCP Internal Medicine; Visit Provider Psychiatry & Neurology Neurology
DX: R41.89 Other symptoms and signs involving cognitive functions and awareness (principal); F51.01 Primary insomnia; R06.83 Snoring
CPT/HCPCS: 99204; G2211

== ENCOUNTER → 2025-04-01 11:03 | Outpatient (BNV) | payer OTHER, SELFPAY | PROVIDERS: PCP Internal Medicine; Visit Provider Radiology Diagnostic Radiology | DX: R90.82 White matter disease, unspecified (principal); G31.9 Degenerative disease of nervous system, unspecified; J32.0 Chronic maxillary sinusitis; J33.1 Polypoid sinus degeneration | CPT/HCPCS: 70551 ==

== ENCOUNTER 2025-04-01 11:07 | Outpatient (REF) | payer OTHER, SELFPAY ==
--- NOTE | ~2025-04-01 | MR_ITS ---
EXAMINATION: MR BRAIN WITHOUT CONTRAST CLINICAL INFORMATION: Cognitive impairment. COMPARISON: None available. TECHNIQUE: MRI of the brain was obtained using routine sequences without contrast. FINDINGS: No restricted diffusion. Bilateral multifocal patchy and punctate deep periventricular white matter hyperintense T2 FLAIR signal involving centrum semiovale and tapia radiata. Old lacunar infarcts with the Cribriform pattern involving the lenticular nuclei. Prominence of the extra-axial CSF spaces cerebral sulci and ventricles involving both hemispheres. No gross signal abnormality or volume loss in the hippocampi. Flow-void signal within the main cerebral vessels is normal with the dolichoectatic left ICA and supraclinoid segment. No acute intracranial hemorrhage, mass effect, midline shift, hydrocephalus or herniation. There is normal position of the cerebellar tonsils. Sellar/suprasellar region demonstrated no signal abnormality or gross volume loss. There is thinning/volume loss of the optic chiasm. There is a polypoid mucosal thickening, right maxillary sinus with the likely volume loss and no discrete restricted diffusion. Absent medial wall right maxillary sinus likely post surgical changes. There are a few, less than 5 mm intraparenchymal lymph nodes in the superficial parotid gland with restricted diffusion. 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 Concerning for vascular dementia. Demyelinating process seems less likely. Atrophy, optic chiasm and questionable optic nerves. Polypoid acute on chronic right maxillary sinus disease. Post surgical changes. Dolichoectatic left ICA. Global cerebral atrophy. . Electronically signed by: Flaquito Betts MD 04/02/2025 08:08 AM EDT
== END 2025-04-01 11:08 | disposition home or self-care (01) ==
LOC: HO.MRI 11:07
PROVIDERS: PCP Internal Medicine; Visit Provider Psychiatry & Neurology Neurology
DX: R41.89 Other symptoms and signs involving cognitive functions and awareness (principal)
CPT/HCPCS: 70551

== ENCOUNTER 2025-05-23 16:03 | Outpatient (AMB) | payer OTHER, SELFPAY ==
--- NOTE | 2025-05-23 16:09 | A.OFFVIS_ITS ---
Intake Vital Signs 05/23/25 16:11 Height 5 ft 6 in Weight 212 lb 6 oz BMI 34.3 BP 112/72 Blood Pressure Location Lt brachial Position Sitting Pulse 64 Pulse Source Pulse Oximeter Temp 97.3 F Temp Source Temporal Artery Scan Pulse Oximetry (%) 98 Oxygen Delivery Method Room Air Intake Visit Reasons: AWV Intake Note: Patient is here for an Annual Wellness Visit. Office Communication Professor Required: Yes Office Communication Professor Language: Glass Ribbon Machine Operator Assistant Services: Office Communication Professor Offered & Declined Office Communication Professor Name: Toshia (Niece) Information Interpreted: non-clinical & clinical (pt decline criminalist technician prefer N iece to translate) Industrial Chemist: Industrial Chemist Present Accompanied by: Nephew or Niece Allergies No Known Allergies (No Known Allergies*) Allergy (Verified 05/23/25 16:40) Medication List - Last Reconciled 05/23/25 by Melissa Mcrae MD acetaminophen 1,000 mg (2 x 500 mg) PO Q6H PRN 30 days amlodipine 2.5 mg PO DAILY 90 days ammonium lactate 12% 1 appl topical BID PRN 90 days atorvastatin 20 mg PO QPM 90 days blood pressure monitor As directed cetirizine 10 mg PO DAILY PRN 90 days cholecalciferol (vitamin D3) 25 mcg PO DAILY 90 days citalopram 10 mg PO DAILY disposable gloves Use 10 per day as needed Grab bar As directed [handheld shower head As directed] hydrochlorothiazide 25 mg PO DAILY 90 days hydrocortisone 1% 1 appl topical TID PRN ibuprofen 600 mg PO Q6H PRN levothyroxine 175 mcg PO DAILY 90 days lisinopril 40 mg PO DAILY 90 days [personal wipes Use 20 per day as needed] [raised toilet seat As directed] [Raised toilet seat with cover As directed] trazodone 50 mg PO BEDTIME PRN triamcinolone acetonide 0.5% 1 appl topical DAILY PRN underpads (Bed Underpads) Use 2 pads once a day underpads (Bed Underpads) Use 2 to 4 bed underpads once a day walker as directed HPI HPI Comments History of Present Illness Details The patient is a 64-year-old male presenting for a Medicare wellness exam. PPP handed to patient. Mini mental status not reliable due to his blindness and illiterate state. [place] of care reviewed and updated. The patient has a history of essential hypertension, managed with amlodipine and lisinopril. He is also on atorvastatin for hyperlipidemia and citalopram for depression, which is described as moderate with a PHQ-9 score of 13. The patient experiences urinary incontinence and has undergone right hip surgery with open reduction and internal fixation. He requires assistance with activities of daily living, including bathing, dressing, and toileting, due to his condition. He has been diagnosed with vascular dementia, with MRI findings indicating changes consistent with this condition. The patient requires assistance with phone use and shopping, and he is transported by others. The patient has osteoarthritis in both knees and is considering knee replacement surgery. He is currently trying injections for pain management and is prescribed Celebrex, with caution due to potential renal effects. Family history includes diabetes and depression in his mother, who also had a stroke and dementia. His father lived to 89 years without diabetes but experienced depression in later years. [facility] Medical History Snoring Allergic rhinitis due to allergen Obese Hypothyroidism Insomnia Dyslipidemia Essential hypertension Surgical History History of open reduction and internal fixation (ORIF) procedure Family History (Updated 05/23/25 @ 16:47 by Melissa Mcrae MD) Mother Diabetes mellitus Father Hypertension Mental health disorder Social History Housing: Apartment Alcohol intake: current Alcohol intake frequency: holidays/special occasions only Alcohol type: beer Patient Tobacco Use Status: Never used Tobacco e-Cigarette/Vaping Use: Never Used Second Hand Smoke Exposure: No Advance Directives Date on File: 10/23/22 service: No Current occupational status: disabled Cognitive needs: Yes (cane) Hearing needs: No Vision needs: No Questionnaire Medicare Wellness Checkup What is your age?: 65-69 (64) What gender do you identify with?: male During the past 4 weeks, how much have you been bothered by emotional problems such as feeling anxious, depressed, irritable, sad or downhearted, and blue?: moderately During the past 4 weeks, has your physical & emotional health limited your social activities with family, friends, neighbors, or groups?: moderately During the past 4 weeks, how much bodily pain have you generally had?: no pain During the past 4 weeks, was someone available to help you if you needed & wanted help?: yes, as much as I wanted Can you get to places out of walking distance without help? (For eg., can you travel alone on buses, taxis or drive your car?): No Can you go shopping for groceries or clothes without someone's help?: No Can you prepare your own meals?: No Can you do your housework without help?: No Because of any health problems, do you need the help of another person with your personal care needs such as eating, bathing, dressing or getting around the house?: Yes Can you handle your own money without help?: No During the past 4 weeks, how would you rate your health in general?: fair During the past 4 weeks how have things been going for you?: good & bad parts about equal Are you having difficulties driving your car?: not applicable, I don't use a car Do you always fasten your seat belt when you are in a car?: yes, usually During past 4 weeks, have you been bothered by the following: never: Falling or dizzy when standing up, Sexual problems?, Trouble eating well?, Teeth or denture problems? and Tiredness or fatigue? and often: Problems using the telephone? Have you fallen 2 or more times in the past year?: Yes Are you afraid of falling?: Yes Are you a smoker?: no During the past 4 weeks, how many drinks of wine, beer, or other alcoholic beverages did you have?: 1 drink or less per week Do you exercise for about 20 minutes 3 or more times a week?: no, I usually do not exercise this much Have you been given information to help with the following?: no: Hazards in your house that might hurt you? and no: Keeping track of your medications? How often do you have trouble taking medicines the way you have been told to take them?: I always take medicine as prescribed How confident are you that you can control & manage most of your health problems?: not very confident What is your race?: or origin or descent Mini Mental State Exam (MMSE) Orientation What is the (year) (season) (date) (day) (month)?: date, day and month Where are we (state) (county) (town or city) (hospital) (floor)?: state, county, town or city, hospital/clinic and floor Registration Name of 3 unrelated objects clearly and slowly, then ask patient to repeat all 3 of them. (1st repeat determines score. Make sure they can repeat all three): object 1, object 2 and object 3 Attention & Calculation (CHOOSE ONE) Spell WORLD backwards (DLROW): 0 letters Recall Ask patient to repeat the 3 items from question #3.: object 1, object 2 and object 3 Language Show patient a wristwatch & ask what it is. Repeat for pencil.: watch and pencil Ask the patient to repeat the phrase 'No ifs, ands, or buts' after you.: correct Ask the patient to 'take a piece of paper with their right hand' 'fold paper in half' 'place paper on floor': take paper in right hand, fold paper in half and place paper on floor Score Score: 20 Activity of Daily Living Bathing - sponge bath, tub bath or shower: receives help in bathing more than one body part (or not bathed) Dressing - getting clothes from closets & drawers, including inner/outer garments & fasteners.: receives help getting clothes or getting dressed, or stays undressed Toileting - going to the 'toilet room' for urine/bowel elimination & cleaning self/arranging clothes: does not go to room termed toilet for elimination process Transfer: moves in & out of bed or chair with help Continence: has occasional 'accidents' Feeding: feeds self without help Total Score: 3 Information obtained from: informant Using telephone: dependent Traveling: dependent Shopping: dependent Preparing meals: dependent Housework: dependent Taking medicine: dependent Managing money: dependent PHQ-9 Over the last 2 weeks, how often have you been bothered by any of the following problems? 1. Little interest or pleasure in doing things: more than half the days 2. Feeling down, depressed, or hopeless: more than half the days 3. Trouble falling or staying asleep, or sleeping too much: more than half the days 4. Feeling tired or having little energy: several days 5. Poor appetite or overeating: several days 6. Feeling bad about yourself - or that you are a failure or have let yourself or your family down: several days 7. Trouble concentrating on things, such as reading the newspaper or watching television: more than half the days 8. Moving or speaking so slowly that other people could have noticed. Or the opposite - being so fidgety or restless that you have been moving around a lot more than usual: more than half the days 9. Thoughts that you would be better off or of hurting yourself in some way: not at all Total score: 13 Depression Screening Interpretation: Positive Depression Screening Follow-up: Existing condition, In treatment and Follow-up Visit Requested Depression Screening Done: Yes 90694 - PHQ-9 Billing: Yes Source: Developed by Drs. Maximilian Mendieta, Cuca Harper, Roscoe Rodriguez and colleagues, with an educational linette from [employer]. Thrive Questionnaire Date Thrive assessed: 10/12/24 CASA-7 AMB Questionnaire CASA-7 Date CASA - 7 assessed: 10/12/24 Source: Developed by Drs. Maximilian Mendieta, Cuca Harper, Roscoe Rodriguez and colleagues, with an educational linette from [employer]. Review of Systems Const All systems reviewed & are unremarkable except as noted in HPI and below Card Denies chest pain at rest, Denies chest pain with activity, Denies edema, Denies irregular heart rhythm, Denies claudication, Denies dyspnea, Denies dyspnea on exertion, Denies orthopnea, Denies paroxysmal nocturnal dyspnea and Denies slow heart rate Resp Denies cough, Denies dyspnea and Denies dyspnea on exertion GI Denies abdominal pain, Denies change in bowel habits, Denies excessive flatus, Denies nausea and Denies vomiting Neuro Denies lack of coordination Physical Exam Vital Signs: Last Vital Signs Temp 97.3 F 05/23/25 16:11 Pulse 64 05/23/25 16:11 BP 112/72 05/23/25 16:11 Pulse Ox 98 05/23/25 16:11 Oxygen Delivery Method Room Air 05/23/25 16:11 BMI result Body Mass Index 34.3 Resp Effort & Inspection: normal respiratory effort Auscultation: clear to auscultation bilaterally Cardio Jugular venous distension: no JVD Rate: regular rate Rhythm: regular rhythm Heart sounds: S1 normal heart sound present and S2 normal heart sound present Neuro General: no focal motor deficits Romberg Test: Negative Extrem General: Yes full ROM Assessment & Plan Assessment & Plan (1) Encounter for Medicare annual wellness exam: Code(s): Z00.00 - Encounter for general adult medical examination without abnormal findings (2) Bilateral primary osteoarthritis of knee: Code(s): M17.0 - Bilateral primary osteoarthritis of knee Plan Plan Patient was informed and verbally consented to the use of an ambient scribe for clinic note documentation during this visit. 1. Essential Hypertension The patient is currently managed with amlodipine and lisinopril for essential hypertension. 2. Major Depressive Disorder The patient is on citalopram for depression, with a PHQ-9 score indicating moderate severity. 3. Urinary Incontinence The patient experiences urinary incontinence and requires assistance with toileting. 4. Vascular Dementia The patient has vascular dementia, with MRI findings supporting the diagnosis. 5. Osteoarthritis Of The Knees The patient is considering knee replacement surgery and is currently receiving injections for pain management. Celebrex is prescribed with caution due to potential renal effects. 6. Thyroid Disorder The patient is on thyroid medication, with a dosage of 175 mcg. 7. Right Hip Fracture Status Post Open Reduction And Internal Fixation The patient has a history of right hip fracture treated with open reduction and internal fixation. 8. Preventative Care: Colonoscopy Pending The patient is due for a colonoscopy as part of preventative care measures. Orders: Orders Thyroid Stimulating Hormone Today E03.9 - Hypothyroidism, unspecified Vitamin D 25-OH Total Today E55.9 - Vitamin D deficiency, unspecified Lipid Panel Today E78.5 - Hyperlipidemia, unspecified Comprehensive Flora. Panel Fast Today I10 - Essential (primary) hypertension Referrals Open Access Screening Colonoscopy Referral Z12.12 - Encounter for screening for malignant neoplasm of rectum Medications: New celecoxib (Celebrex) 100 mg PO BID 10 caps 0RF 5 days Refilled hydrochlorothiazide 25 mg PO DAILY 90 tabs 1RF 90 days I10 - Essential (primary) hypertension trazodone 50 mg PO BEDTIME PRN 30 tabs 0RF for insomnia Quality Reporting (2019) Depression/Bipolar (159/160/161/177) PHQ-9: Total score: 13 Coding Level of Care Code Medicare Subsequent (G0439) Est Pt Level 3 (95008) Diagnoses Encounter for Medicare annual wellness exam Z00.00 Bilateral primary osteoarthritis of knee M17.0 Additional Codes PHQ-9 - 00763 - PHQ-9 Billing: Yes ([id number]) Time Spent (min) 35
[2025-05-23 16:11] VITALS: BP 112/72; PULSE 64; TEMP 36.3; O2SAT 98; BMI 34.3
--- OUTSIDE RECORDS SUMMARY | 2025-05-23 16:34 | XMS_ITS | Clinical Summary ---
Author Organization [employer] Address [address] [facility] [address] [place] [address] Care Team Providers Care Impregnator Helper Name Role Phone Unavailable Primary Care Provider [...] 04/12/2018 02/15/2018, 11/22 COVID-19 Vaccine ( season) 2025 06/11/2023, 08/05/2022, 08/12/2021, Additional history exists Influenza [...] patient's age to complete this topic Insurance [facility] ONE CARE < 65 [place] [id number]
--- OUTSIDE RECORDS SUMMARY | 2025-05-23 16:34 | XMS_ITS | Encounter Summary ---
Author Organization [employer] Address [address] [facility] [address] [place] [address] Care Team Providers Care Punch Out Crew Member Name Role Phone Unavailable Primary Care Provider Unavailabl e Encounter Details Date Type Department Care Team (Latest Contact Info) Description 09/09/2018 Abstract [facility] CONVERSIONS Dental, Provider, DDS Social History [...]
--- OUTSIDE RECORDS SUMMARY | 2025-05-23 16:34 | XMS_ITS | Encounter Summary ---
Author Organization [employer] Address [address] [facility] [address] [place] [address] Care Team Providers Care Die Tripper Name Role Phone Unavailable Primary Care Provider Unavailabl e Encounter Details Date Type Department Care Team (Latest Contact Info) Description 10/02/2019 Abstract [facility] CONVERSIONS Dental, Provider, DDS Social History Tobacco [...]
== END 2025-05-23 17:01 | disposition home or self-care (01) ==
LOC: HO.HMCH 16:04
PROVIDERS: PCP Internal Medicine; Visit Provider Internal Medicine
DX: Z00.00 Encounter for general adult medical examination without abnormal findings (principal); M17.0 Bilateral primary osteoarthritis of knee

== ENCOUNTER → 2025-05-23 16:03 | Outpatient (BNVA) | payer OTHER, SELFPAY | PROVIDERS: PCP Internal Medicine; Visit Provider Internal Medicine | DX: Z00.00 Encounter for general adult medical examination without abnormal findings (principal); I10 Essential (primary) hypertension; E78.5 Hyperlipidemia, unspecified; R32 Unspecified urinary incontinence; F01.50 Vascular dementia, unspecified severity, without behavioral disturbance, psychotic disturbance, mood disturbance, and anxiety; M17.0 Bilateral primary osteoarthritis of knee; F32.9 Major depressive disorder, single episode, unspecified; E03.9 Hypothyroidism, unspecified; E55.9 Vitamin D deficiency, unspecified; Z79.899 Other long term (current) drug therapy | CPT/HCPCS: 96127; 99212 ==

== ENCOUNTER 2025-07-02 08:53 | Outpatient (REF) | payer OTHER, SELFPAY ==
--- NOTE | ~2025-07-02 | XR_ITS ---
EXAMINATION: X-ray bilateral knees CLINICAL INFORMATION: Pain COMPARISON: X-ray 05/19/2024 TECHNIQUE: AP bilateral knees were 2 views. Right knee 2 views. Left knee 2 views. FINDINGS: Right knee: Severe medial compartment arthritis, joint space loss. Mild lateral and patellofemoral arthritis. No visible acute fracture or dislocation. Moderate-large effusion. No suspicious bony lesion. Left knee: Severe medial compartment arthritis. Mild lateral and patellofemoral arthritis. No acute fracture or dislocation. Moderate-large effusion. No suspicious bony lesion. XR/XR Knee Mehul 3V IMPRESSION: RIGHT KNEE: Tricompartment osteoarthritis. Severe medial compartment arthritis. Moderate-large effusion. LEFT KNEE: Tricompartment osteoarthritis. Severe medial compartment arthritis. Moderate-large effusion. Electronically signed by: Ash Elliott MD 07/03/2025 08:05 AM DIPESH
--- OUTSIDE RECORDS SUMMARY | 2025-07-03 09:17 | XMS_ITS | Clinical Summary ---
Author Organization [employer] Address [address] [facility] [address] [place] [address] Care Team Providers Care Machine Maintenance Mechanic Name Role Phone Unavailable Primary Care Provider [...] patient's age to complete this topic Insurance [facility] ONE CARE < 65 [place] [id number]
--- OUTSIDE RECORDS SUMMARY | 2025-07-03 09:17 | XMS_ITS | Encounter Summary ---
Author Organization [employer] Address [address] [facility] [address] [place] [address] Care Team Providers Care Geology Instructor Name Role Phone Unavailable Primary Care Provider Unavailabl e Encounter Details Date Type Department Care Team (Latest Contact Info) Description 10/02/2019 Abstract [facility] CONVERSIONS Dental, Provider, DDS Social History [...]
--- OUTSIDE RECORDS SUMMARY | 2025-07-03 09:17 | XMS_ITS | Encounter Summary ---
Author Organization [employer] Address [address] [facility] [address] [place] [address] Care Team Providers Care Embossing Calender Operator Name Role Phone Unavailable Primary Care Provider Unavailabl e Encounter Details Date Type Department Care Team (Latest Contact Info) Description 09/09/2018 Abstract [facility] CONVERSIONS Dental, Provider, DDS Social History [...]
== END 2025-07-02 08:54 | disposition home or self-care (01) ==
LOC: HO.HOSX 08:53
PROVIDERS: Visit Provider Physician Assistant
DX: M17.0 Bilateral primary osteoarthritis of knee (principal)
CPT/HCPCS: 20610; 73562; 99212; J0665; J1100; J2003

== ENCOUNTER 2025-07-02 15:09 | Outpatient (AMB) | payer OTHER, SELFPAY ==
--- NOTE | 2025-07-02 15:23 | A.OFFVIS_ITS ---
Intake Visit Reasons: OV-bilateral knee injection last 05/19/24 Intake Note: Thierry is a 64 year old male who presents today for a steroid injection in his bilateral knee, last 05/19/24. At today's visit he states last injections gave him relief and would like to repeat. Allergies No Known Allergies (No Known Allergies*) Allergy (Verified 07/02/25 15:26) Medication List - Last Reconciled 07/04/25 by Maddie Levin PA-C acetaminophen 1,000 mg (2 x 500 mg) PO Q6H PRN 30 days amlodipine 2.5 mg PO DAILY 90 days ammonium lactate 12% 1 appl topical BID PRN 90 days atorvastatin 20 mg PO QPM 90 days blood pressure monitor As directed celecoxib (Celebrex) 100 mg PO BID 5 days cetirizine 10 mg PO DAILY PRN 90 days cholecalciferol (vitamin D3) 25 mcg PO DAILY 90 days citalopram 10 mg PO DAILY disposable gloves Use 10 per day as needed Grab bar As directed [handheld shower head As directed] hydrochlorothiazide 25 mg PO DAILY 90 days hydrocortisone 1% 1 appl topical TID PRN ibuprofen 600 mg PO Q6H PRN levothyroxine 175 mcg PO DAILY 90 days lisinopril 40 mg PO DAILY 90 days [personal wipes Use 20 per day as needed] [raised toilet seat As directed] [Raised toilet seat with cover and handles As directed] trazodone 50 mg PO BEDTIME PRN triamcinolone acetonide 0.5% 1 appl topical DAILY PRN underpads (Bed Underpads) Use 2 pads once a day underpads (Bed Underpads) Use 2 to 4 bed underpads once a day walker as directed HPI HPI OV-bilateral knee injection last 05/19/24: Details: 64-year-old gentleman returns to the office today for a follow-up bilateral knee pain. Saw me last in April of 2024 and had injections which were helpful up until recently. Has discomfort with daily activities including stair climbing and walking long distances. [facility] Medical History Snoring Allergic rhinitis due to allergen Obese Hypothyroidism Insomnia Dyslipidemia Essential hypertension Surgical History History of open reduction and internal fixation (ORIF) procedure Family History (Updated 05/23/25 @ 16:47 by Melissa Mcrae MD) Mother Diabetes mellitus Father Hypertension Mental health disorder Social History Housing: Apartment Alcohol intake: current Alcohol intake frequency: holidays/special occasions only Alcohol type: beer Patient Tobacco Use Status: Never used Tobacco e-Cigarette/Vaping Use: Never Used Second Hand Smoke Exposure: No Advance Directives Date on File: 10/23/22 service: No Current occupational status: disabled Cognitive needs: Yes (cane) Hearing needs: No Vision needs: No Review of Systems Const All systems reviewed & are unremarkable except as noted in HPI and below Physical Exam Const General: cooperative, healthy appearing, comfortable, no acute distress, well developed and alert Orientation/consciousness: patient oriented x3 HEENT Head: Yes normal to inspection, Yes normocephalic and Yes atraumatic Eyes General: appearance normal, both eyes and all related structures Resp Effort & Inspection: normal respiratory effort and able to speak in complete sentences Cardio Rate: regular rate Peripheral pulses: Peripheral pulses 2+ throughout GI Palpation (GI): Soft to palpation Skin Lesions: no lesions Rashes: no rashes Neuro General: patient oriented x3 Extrem Other: Bilateral knee: Skin intact, no erythema or joint effusion. Tenderness along the medial and lateral joint line. Full ROM with crepitus. Negative Garland?s. No ligamentous laxity. NVI. ? Office Procedures AMB Joint Injection/Aspiration Joint Injection/Aspiration Primary Site: right knee Secondary Site: left knee Prep: site was prepped using aseptic technique, ethochloride spray was applied and injection warnings given Injected: 40 mg of, with 3 mL of, 1% plain lidocaine, 0.25% bupivacaine, in the joint and decadron Approach Used: anterolateral Procedure: The patient tolerated the procedure well and there was some relief with the local anesthesia Coding 50179 - Glenohumeral/Tronchanteric Bursa/Intraarticular Procedure code (CPT) selection complete Results Reviewed Results Reviewed: XR Knee Mehul 3V IMPRESSION: RIGHT KNEE: Tricompartment osteoarthritis. Severe medial compartment arthritis. Moderate-large effusion. LEFT KNEE: Tricompartment osteoarthritis. Severe medial compartment arthritis. Moderate-large effusion. Assessment & Plan Assessment & Plan (1) Osteoarthritis of knees, bilateral: Code(s): M17.0 - Bilateral primary osteoarthritis of knee Category: Medical Plan We discussed options today, which include steroid injection. The patient did consent to move forward with the bilateral knee injection, which was tolerated well. I recommended rest, ice, and elevation and OTC anti-inflammatories as needed for discomfort. If symptoms persist or worsen over the next 6-8 weeks, patient will contact the office, otherwise follow-up as needed. Orders: Orders XR Knee Mehul 3V 07/02/25 M25.561 - Pain in right knee, M25.562 - Pain in left knee Coding Level of Care Code Est Pt Level 3 (83724) Complex EM visit Add On G2211 Diagnoses Osteoarthritis of knees, bilateral M17.0 CPT Codes Coding - Joint 7: 04255 - Glenohumeral/Tronchanteric Bursa/Intraarticular ([id number])
--- OUTSIDE RECORDS SUMMARY | 2025-07-02 17:18 | XMS_ITS | Encounter Summary ---
Author Organization [employer] Address [address] [facility] [address] [place] [address] Care Team Providers Care C++ Professor Name Role Phone Unavailable Primary Care Provider Unavailabl e Encounter Details Date Type Department Care Team (Latest Contact Info) Description 10/02/2019 Abstract [facility] CONVERSIONS Dental, Provider, DDS Social History Tobacco [...]
--- OUTSIDE RECORDS SUMMARY | 2025-07-02 17:18 | XMS_ITS | Encounter Summary ---
Author Organization [employer] Address [address] [facility] [address] [place] [address] Care Team Providers Care Firesetter Name Role Phone Unavailable Primary Care Provider Unavailabl e Encounter Details Date Type Department Care Team (Latest Contact Info) Description 09/09/2018 Abstract [facility] CONVERSIONS Dental, Provider, DDS Social History Tobacco [...]
--- OUTSIDE RECORDS SUMMARY | 2025-07-02 17:18 | XMS_ITS | Clinical Summary ---
Author Organization [employer] Address [address] [facility] [address] [place] [address] Care Team Providers Care Scrap Crusher Name Role Phone Unavailable Primary Care Provider [...] complete this topic Insurance [facility] ONE CARE < 65 [place] [id number]
== END 2025-07-02 15:40 | disposition home or self-care (01) ==
LOC: HO.HOS 15:09
PROVIDERS: PCP Internal Medicine; Visit Provider Physician Assistant
DX: M17.0 Bilateral primary osteoarthritis of knee (principal)
CPT/HCPCS: 20610; 99213

== ENCOUNTER → 2025-07-02 15:12 | Outpatient (BNV) | payer OTHER, SELFPAY | PROVIDERS: Visit Provider Radiology Diagnostic Ultrasound | DX: M17.0 Bilateral primary osteoarthritis of knee (principal); M25.461 Effusion, right knee; M25.462 Effusion, left knee | CPT/HCPCS: 73562 ==

== ENCOUNTER 2025-07-04 07:20 | Outpatient (REF) | payer OTHER, SELFPAY ==
--- OUTSIDE RECORDS SUMMARY | 2025-07-04 07:23 | XMS_ITS | Encounter Summary ---
Author Organization [employer] Address [address] [facility] [address] [place] [address] Care Team Providers Care Training Development Director Name Role Phone Unavailable Primary Care Provider Unavailabl e Encounter Details Date Type Department Care Team (Latest Contact Info) Description 09/09/2018 Abstract [facility] CONVERSIONS Dental, Provider, DDS Social History [...]
--- OUTSIDE RECORDS SUMMARY | 2025-07-04 07:23 | XMS_ITS | Encounter Summary ---
Author Organization [employer] Address [address] [facility] [address] [place] [address] Care Team Providers Care Supervisor Telephone Information Name Role Phone Unavailable Primary Care Provider Unavailabl e Encounter Details Date Type Department Care Team (Latest Contact Info) Description 10/02/2019 Abstract [facility] CONVERSIONS Dental, Provider, DDS Social History [...]
--- OUTSIDE RECORDS SUMMARY | 2025-07-04 07:23 | XMS_ITS | Clinical Summary ---
Author Organization [employer] Address [address] [facility] [address] [place] [address] Care Team Providers Care Ribbon Lapper Tender Name Role Phone Unavailable Primary Care Provider [...] patient's age to complete this topic Insurance [facility] < 65 EVELYN ARAUJO [id number]
[2025-07-04 08:36] LABS: Alanine Aminotransferase 31 U/L (0-40); Albumin Level 4.5 g/dL (3.5-5.0); Alkaline Phosphatase 81 U/L (39-117); Anion Gap 12 (12-20); Aspartate Amino Transferase 36 U/L (5-37); Blood Urea Nitrogen 18 mg/dL (9-16); Calcium 9.2 mg/dL (8.4-10.2); Carbon Dioxide 25 mmol/L (22-29); Chloride 105 mmol/L (96-108); Cholesterol 154 mg/dL (<200); Estimated Glomerular Filt Rate > 60; HDL Cholesterol 66 mg/dL (>40); Potassium 4.1 mmol/L (3.3-5.1); Sodium 138 mmol/L (135-145); Total Protein 6.8 g/dL (6.5-8.0); Triglycerides 54 mg/dL (<150)
[2025-07-04 08:56] LABS: Thyroid Stimulating Hormone 8.58 uIU/mL (0.32-4.0)
== END 2025-07-04 07:21 | disposition home or self-care (01) ==
LOC: HO.LAB 07:20
PROVIDERS: PCP Internal Medicine; Visit Provider Internal Medicine
DX: I10 Essential (primary) hypertension (principal); E03.9 Hypothyroidism, unspecified; E78.5 Hyperlipidemia, unspecified; E55.9 Vitamin D deficiency, unspecified
CPT/HCPCS: 36415; 80053; 80061; 82306; 84443